=== PATIENT | female | born 1935 | race Caucasian/White ===

== ENCOUNTER → 2016-04-05 | Outpatient (REF) | payer MEDICARE ==
[~2016-04-05] MED LIST: APRESOLINE PO; ASPI1TAB PO; ASPI81TA4 PO; ASTE137S; CARV12.5 PO; CARV25TA PO; CIPR-250 PO; FLAG500T PO; FLOM5CAP PO; HYDR-4266 PO; HYDR-4267 PO; HYDR100T PO; HYDR100T13 PO; HYDR500C12 PO; HYDROXYUREA PO; IRON325T3 PO; LASI20TA PO; METO-209 PO; METO100T3 PO; MULTCAP PO; NORCOTAB PO; PERCOCET PO; TEKT150T PO; TEKT300T PO; TYLE325T5 PO; VITA200015 PO; VITAD1000T PO; VITMTA PO
== END ==
LOC: M LAB REF 16:09
PROVIDERS: ATTEND Physician Assistant
DX: R11.2 Nausea with vomiting, unspecified (principal); Z79.899 Other long term (current) drug therapy

== ENCOUNTER → 2016-04-05 | Outpatient (REF) | payer MEDICARE ==
[2016-04-05 13:22] LABS: PERCENT SATURATION 34.1 % (13.2-37.4)
== END ==
LOC: M LAB REF 12:27
PROVIDERS: ATTEND Internal Medicine Medical Oncology
DX: D47.3 Essential (hemorrhagic) thrombocythemia (principal); R11.2 Nausea with vomiting, unspecified; Z79.899 Other long term (current) drug therapy

== ENCOUNTER → 2016-06-03 | Outpatient (REF) | payer MEDICARE | LOC: M LAB REF 13:12 | PROVIDERS: ATTEND Internal Medicine Medical Oncology | DX: D50.9 Iron deficiency anemia, unspecified (principal) ==

== ENCOUNTER → 2016-06-18 | Outpatient (CLI) | payer MEDICARE ==
--- NOTE | 2016-06-18 15:20 | REP ---
THORACOLUMBAR SPINE: AP and lateral views of the thoracolumbar spine are performed. There is a moderate compression fracture of T12, which is new since the prior chest radiograph 08/03/2015. No other compression fractures is seen of the visualized. Thoracic and lumbar vertebral bodies. There is normal alignment with thoracic kyphosis and lumbar lordosis. There is mild diffuse spurring. There are multiple levels of moderate disc space narrowing in the mid to lower thoracic spine with subchondral sclerosis. The visualized posterior elements appear intact. IMPRESSION: Diffuse degenerative changes. Moderate compression fracture T12. Loss of height is in the range of about 40 to 50%. Signed by Baltazar Guo MD 06/18/2016 03:33 P
== END ==
LOC: M ADAMS 13:49
PROVIDERS: ATTEND Family Medicine
DX: S22.080A Wedge compression fracture of T11-T12 vertebra, initial encounter for closed fracture (principal); Y93.89 Activity, other specified; Y92.000 Kitchen of unspecified non-institutional (private) residence as the place of occurrence of the external cause; Y99.8 Other external cause status; X58.XXXA Exposure to other specified factors, initial encounter; M54.5 Low back pain
CPT/HCPCS: 72070; G0463

== ENCOUNTER → 2016-07-02 | Outpatient (REF) | payer MEDICARE ==
[2016-07-02 13:56] LABS: PERCENT SATURATION 44.7 % (13.2-37.4)
== END ==
LOC: M LAB REF 12:59
PROVIDERS: ATTEND Internal Medicine Medical Oncology
DX: D50.9 Iron deficiency anemia, unspecified (principal)

== ENCOUNTER → 2016-10-18 | Outpatient (REF) | payer MEDICARE ==
[~2016-10-18] MED LIST changes: +HYDR-3910 PO; +HYDR-3911 PO; -HYDR-4266 PO; -HYDR-4267 PO; -HYDR500C12 PO; +HYDR500C3 PO; -METO-209 PO; +METO1TAB33 PO; -TEKT150T PO; +[UNRECOGNIZED DRUG - CODE] PO
== END ==
LOC: M SFHCADAM 20:54 → M LAB REF 20:54
PROVIDERS: ATTEND Physician Assistant
DX: R19.7 Diarrhea, unspecified (principal)
CPT/HCPCS: 87507; G0463

== ENCOUNTER → 2016-12-05 | Outpatient (REF) | payer MEDICARE ==
[2016-12-05 14:39] LABS: FOLATE > 24.0 NG/ML; VITAMIN B12 LEVEL 408 PG/ML
[2016-12-05 15:20] LABS: FERRITIN 188 NG/ML (8-252); PERCENT SATURATION 53.4 % (13.2-45.0); TOTAL IRON BINDING CAPACITY 116 UG/DL (250-450)
== END ==
LOC: M LAB REF 09:23
PROVIDERS: ATTEND Internal Medicine Nephrology
DX: D64.9 Anemia, unspecified (principal)

== ENCOUNTER → 2016-12-11 | Outpatient (REF) | payer MEDICARE ==
[2016-12-11 14:02] LABS: FOLATE > 24.0 NG/ML (>5.4); VITAMIN B12 LEVEL 394 PG/ML (247-911)
[2016-12-11 14:03] LABS: FERRITIN 207 NG/ML (8-252); PERCENT SATURATION 35.7 % (13.2-45.0); TOTAL IRON BINDING CAPACITY 126 UG/DL (250-450)
== END ==
LOC: M LAB REF 12:37
PROVIDERS: ATTEND Internal Medicine Medical Oncology
DX: D50.9 Iron deficiency anemia, unspecified (principal); D46.9 Myelodysplastic syndrome, unspecified

== ENCOUNTER → 2017-04-28 | Outpatient (REF) | payer MEDICARE ==
[2017-04-28 14:24] LABS: FERRITIN 187 NG/ML (8-252); IRON (FE) 25 UG/DL (50-170); PERCENT SATURATION 25.5 % (13.2-45.0); TOTAL IRON BINDING CAPACITY 98 UG/DL (250-450)
== END ==
LOC: M LAB REF 13:17
DX: D64.9 Anemia, unspecified (principal)
CPT/HCPCS: 83550

== ENCOUNTER 2017-05-29 11:07 | Emergency (ER) | payer MEDICARE ==
[2017-05-29 12:55] LABS: VENOUS BASE EXCESS 2.2 (-2.0-2.0); VENOUS HCO3 26.5 MEQ/L (23.0-27.0); VENOUS O2 SATURATION 76.1 % (60.0-80.0); VENOUS PARTIAL PRESSURE CO2 40.1 mmHg (38.0-50.0); VENOUS PARTIAL PRESSURE O2 41.8 mmHg (30.0-50.0); VENOUS PH 7.438 UNITS (7.330-7.430); VENOUS TOTAL CO2 27.7 MEQ/L (24.0-28.0)
[2017-05-29 13:06] LABS: BASO # 0.1 10^3/uL (0.0-0.2); BASO % 0.9 % (0.0-1.0); EOS # 0.2 10^3/uL (0.0-0.50); IMMATURE GRANULOCYTE % 0.3 % (0-3.0); LYMPH # 0.8 10^3/uL (1.5-4.5); LYMPH % 12.3 % (24.0-44.0); MEAN CORPUSCULAR HEMOGLOBIN 34.1 pg (27.0-33.0); MEAN CORPUSCULAR HGB CONC 33.3 g/dl (32.0-36.5); MEAN CORPUSCULAR VOLUME 102.3 fl (80.0-96.0); NEUTROPHILS # 4.4 10^3/uL (1.8-7.7); NEUTROPHILS % 68.5 % (36.0-66.0); PLATELET COUNT, AUTOMATED 486 10^3/uL (150-450); RED BLOOD COUNT 2.64 10^6/uL (4.00-5.40); RED CELL DISTRIBUTION WIDTH 15.1 % (11.5-14.5); WHITE BLOOD COUNT 6.4 10^3/uL (4.0-10.0)
[2017-05-29 13:09] LABS: INR 1.08; PROTHROMBIN TIME 14.2 SECONDS (12.4-14.5)
[2017-05-29 13:27] LABS: LACTIC ACID SEPSIS PROTOCOL 0.8 MMOL/L (0.4-2.0)
[2017-05-29 13:30] LABS: ALBUMIN 3.7 GM/DL (3.2-5.2); ALKALINE PHOSPHATASE 70 U/L (45-117); ALT/SGPT 15 U/L (12-78); ANION GAP 10 MEQ/L (8-16); AST/SGOT 27 U/L (7-37); BILIRUBIN,DIRECT 0.2 MG/DL (0.0-0.2); BILIRUBIN,TOTAL 0.7 MG/DL (0.2-1.0); BLOOD UREA NITROGEN 39 MG/DL (7-18); CALCIUM LEVEL 8.9 MG/DL (8.8-10.2); CARBON DIOXIDE LEVEL 28 MEQ/L (21-32); CHLORIDE LEVEL 99 MEQ/L (98-107); CPK CREATINE PHOSPHOKINASE 101 U/L (26-192); CREATININE FOR GFR 2.38 MG/DL (0.55-1.30); GLOMERULAR FILTRATION RATE 20.7 (>32); GLUCOSE, FASTING 101 MG/DL (70-100); POTASSIUM SERUM 3.9 MEQ/L (3.5-5.1); SODIUM LEVEL 137 MEQ/L (136-145); TOTAL PROTEIN 7.4 GM/DL (6.4-8.2); TROPONIN I 1.34 NG/ML (< 0.10)
[2017-05-29 13:43] LABS: CK-MB VALUE MASS 1.9 NG/ML (0.0-3.6); MB/CK RELATIVE INDEX 1.88 (< OR =4); NT-PRO BNP 60479 PG/ML (<450)
[2017-05-29] MEDS: HEPARIN SOD (PORCINE) 5000 UNITS/ML VIAL IV (16:30)
[2017-05-29] MEDS: HEPARIN DRIP 25,000 UNITS in APPROPRIATE DILUENT 1 EA IV (17:04)
[2017-05-29] MEDS: ASPIRIN 81 MG CHEW TABLET PO (17:04)
== END 2017-05-29 17:43 | disposition short-term general hospital (02) ==
LOC: M ED 11:07
DX: I21.4 Non-ST elevation (NSTEMI) myocardial infarction (principal); I50.32 Chronic diastolic (congestive) heart failure; I35.0 Nonrheumatic aortic (valve) stenosis; I11.0 Hypertensive heart disease with heart failure; N18.9 Chronic kidney disease, unspecified; D64.9 Anemia, unspecified; D69.6 Thrombocytopenia, unspecified; Z88.8 Allergy status to other drugs, medicaments and biological substances; Z88.1 Allergy status to other antibiotic agents; Z88.0 Allergy status to penicillin; Z79.899 Other long term (current) drug therapy; Z79.82 Long term (current) use of aspirin
CPT/HCPCS: 71046

== ENCOUNTER → 2017-09-04 | Outpatient (REF) | payer MEDICARE ==
[2017-09-04 14:10] LABS: FERRITIN 376 NG/ML (8-252); IRON (FE) 75 UG/DL (50-170); PERCENT SATURATION 78.9 % (13.2-45.0); TOTAL IRON BINDING CAPACITY 95 UG/DL (250-450)
== END ==
LOC: M LAB REF 13:17
DX: D47.1 Chronic myeloproliferative disease (principal); D64.9 Anemia, unspecified
CPT/HCPCS: 83550

== ENCOUNTER → 2018-02-25 | Outpatient (REF) | payer MEDICARE ==
[2018-02-25 13:41] LABS: FERRITIN 274 NG/ML (8-252); IRON (FE) 67 UG/DL (50-170); PERCENT SATURATION 50.8 % (13.2-45.0); TOTAL IRON BINDING CAPACITY 132 UG/DL (250-450)
[2018-02-25 13:49] LABS: FOLATE > 24.0 NG/ML; VITAMIN B12 LEVEL 476 PG/ML
[2018-03-01 14:08] LABS: Methylmalonic Acid 408 nmol/L (0-378)
== END ==
LOC: M LAB REF 13:00
DX: D64.9 Anemia, unspecified (principal)
CPT/HCPCS: 82746

== ENCOUNTER → 2018-12-08 | Outpatient (REF) | payer MEDICARE ==
[~2018-12-08] MED LIST changes: +ALIS300T PO; +ALLO100T PO; -ASPI1TAB PO; +ASPI81TA26 PO; +BETA1OI; +BRIL90TA PO; +CALC1CAP31 PO; +COLC1TAB14 PO; +DOXA1TAB67 PO; +FLOM0.4C39 PO; -FLOM5CAP PO; +HYDR-3715 PO; -LASI20TA PO; +LASI20TA3 PO; -NORCOTAB PO; +OXYC1TAB23 PO; -PERCOCET PO; +POTA10TA67 PO; +TEKT150T PO; -TEKT300T PO; +VITA500045 PO; -[UNRECOGNIZED DRUG - CODE] PO
[2018-12-08 14:15] LABS: PERCENT SATURATION 38.3 % (13.2-45.0)
== END ==
LOC: M LAB REF 13:49
PROVIDERS: ATTEND Internal Medicine Nephrology
DX: D64.9 Anemia, unspecified (principal)

== ENCOUNTER 2019-01-20 19:03 | Inpatient (IN) | payer MEDICARE ==
[~2019-01-20] VITALS: Ht 154.9 cm; Wt 62.8 kg
[2019-01-20] MEDS: ALLOPURINOL 100 MG TAB PO SCH (03:13)
--- NOTE | 2019-01-20 20:09 | REP ---
Two-view chest: 01/20/2019. Indication: Dyspnea. Comparison: 05/29/2017. Findings: The lungs are clear. There is no pleural effusion or pneumothorax. Cardiac silhouette is borderline enlarged. Aortic atherosclerotic disease is present. Cardiac stent is new. Impression: There is no evidence of acute cardiopulmonary process. Electronically Signed by Rodney De Los Santos DO 01/20/2019 08:01 P
[2019-01-20 20:11] LABS: BASO % 0.6 % (0.0-1.0); EOS # 0.1 10^3/uL (0.0-0.5); HEMATOCRIT 23.8 % (36.0-47.0); HEMOGLOBIN 8.2 g/dl (12.0-15.5); LYMPH # 0.6 10^3/uL (1.5-5.0); LYMPH % 11.7 % (24.0-44.0); MEAN CORPUSCULAR HEMOGLOBIN 37.1 pg (27.0-33.0); MEAN CORPUSCULAR HGB CONC 34.5 g/dl (32.0-36.5); MEAN CORPUSCULAR VOLUME 107.7 fl (80.0-96.0); MONO # 0.6 10^3/uL (0.0-0.8); MONO % 11.9 % (0.0-5.0); NEUTROPHILS # 3.6 10^3/uL (1.5-8.5); PLATELET COUNT, AUTOMATED 393 10^3/uL (150-450); RED BLOOD COUNT 2.21 10^6/uL (4.00-5.40); WHITE BLOOD COUNT 4.9 10^3/uL (4.0-10.0)
[2019-01-20 20:33] LABS: CALCIUM LEVEL 8.6 MG/DL (8.8-10.2); CK-MB VALUE MASS 2.5 NG/ML (<3.6); CREATININE FOR GFR 2.69 MG/DL (0.55-1.30); GLOMERULAR FILTRATION RATE 17.9 (>32); MB/CK RELATIVE INDEX 1.32 (< OR =4); POTASSIUM SERUM 3.9 MEQ/L (3.5-5.1); TROPONIN I 0.16 NG/ML (< 0.10)
[2019-01-20 22:05] VITALS: BP 192/79
[2019-01-20 22:20] VITALS: BP 209/78
--- NOTE | 2019-01-20 22:28 | HPEPDOC ---
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 Khan for hemoglobin and hemoglobin. Patient states that for the last 2 days she has noticed light red bloody diarrhea. Denies abdominal pain, denies nausea, vomiting, denies any dizziness, denies any headaches, denies any hemoptysis, denies any dyspepsia, denies any dysphasia. She states that she believes her bloody diarrhea is due to medication adverse effects. Denies any recent trauma. She admits to shortness of breath. In the ED, initial evaluation showed patient was anemic with a hemoglobin of 8.2, with a hemo-crit of 23.8. 2 units of blood was ordered for patient. Hospital team was called for admission for symptomatic anemia, with positive Hemoccult PAST MEDICAL HISTORY: , Hypertension, chronic kidney disease, follows with nephrology, anemia of chronic disease, thrombocytopenia, CHF, follows with Dr. 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 Multifactorial anemia secondary to chronic renal insufficiency, chronic GI bleeding and secondary to hydroxyurea chemotherapy. PAST SURGICAL HISTORY: Hernia repair, tonsillectomy, D&C, left inguinal hernia and umbilical repair, ERCP with sphinecterotomy, cardiac stent to the left main,TAVR SOCIAL HISTORY: , Nonsmoker, no alcohol, no illicit drug use FAMILY HISTORY: Noncontributory due to advanced age ALLERGIES: Please see below. ROS CONSTITUTIONAL: No fevers, denies chills, denies weight loss, denies lethargy HEENT: No rhinorrhea, no itchy eyes, no congesion, CARDIOVASCULAR: No murmurs no palpitations and arrhythmias RESPIRATORY: Not cough, positive for SOB, GASTROINTESTINAL: No nausea, no vomiting, no difficulty swallowing, no pain with eating, no diarrhea HEMATOLOGICAL: Bright red blood per rectum GENITOURINARY:No Issues HEMATOLOGIC/LYMPHATIC: No swelling PE VITALS: See Below GENERAL APPEARANCE: Alert no acute distress. , Elderly, pleasant female, alert, and oriented SKIN: Warm, well perfused., Dry skin ENT: Palate intact, martinez tympanic membrane no bulging, no erythema, Neck supple, no thyromegaly, healing surgical scar on patient's right cheek LUNGS: Clear to auscultation bilaterally. HEART: Normal S1, S2. No murmurs, no rubs, no gallops ABDOMEN: Soft. No masses. Bowel sounds are present. TRUNK/SPINE:Straight. EXTREMITIES: Moves all extremities equally. No gross deformities. PULSES: 2+ upper and lower extremity . LABORATORY DATA: See below. IMAGING: Chest radiograph No evidence of acute cardiopulmonary process MICROBIOLOGY: Please see below. Assessment and plan, An 83-year-old presenting with 2 days of bloody diarrhea, admits to shortness of breath. Admitted for symptomatic anemia. 2 units of packed red blood cells have been ordered for patient. We'll continue to monitor H&H after blood transfusion. Patient has declined workup with colonoscopy. Last colonoscopy was dated 2004, on August 22. Performed by Dr. Lozano. Indication for this was rectal bleeding of unknown etiology. It showed hemorrhoids and diverticulosis with an otherwise normal exam. Patient has not had a colonoscopy since. Symptomatic anemia secondary to GI bleed -Transfuse 2 units of red blood cells, monitor H&H g6 -Hold aspirin -Hold Brilinta -Hold hydroxyurea Hypertension. Continue home meds -IV meds to control elevated BP Chronic kidney disease. -continue to monitor Gout -Continue home meds Diastolic congestive heart failure. Continue home meds DVT prophylaxis TEDs Vital Signs Vital Signs Date Time Temp Pulse Resp B/P (MAP) Pulse Ox O2 Delivery O2 Flow Rate FiO2 01/20/19 21:23 67 23 201/81 (121) 98 Room Air 01/20/19 19:05 97.9 Laboratory Data Labs 24H Laboratory Tests 2 01/20/19 19:57: Immature Granulocyte % (Auto) 0.8, Neutrophils (%) (Auto) 74.0H, Lymphocytes (%) (Auto) 11.7L, Monocytes (%) (Auto) 11.9H, Eosinophils (%) (Auto) 1.0, Basophils (%) (Auto) 0.6, Neutrophils # (Auto) 3.6, Lymphocytes # (Auto) 0.6L, Monocytes # (Auto) 0.6, Eosinophils # (Auto) 0.1, Basophils # (Auto) 0.0, Nucleated Red Blood Cells % (auto) 0.0, Anion Gap 7L, Glomerular Filtration Rate 17.9L, Calcium Level 8.6L, Total Creatine Kinase 189, Creatine Kinase MB 2.5, Creatine Kinase MB Relative Index 1.32, Troponin I 0.16H, UN-Sdd-[id number]-Type Natriuretic Peptide 03822T CBC/BMP Laboratory Tests 01/20/19 19:57 Microbiology Microbiology 01/20/19 Gastrointestinal Tract Panel (PCR), Received Pending Home Medications Scheduled Allopurinol (Allopurinol) 100 Mg Tablet, 100 MG PO BID Aspirin (Aspirin EC) 81 Mg Tab, 81 MG PO DAILY Carvedilol (Carvedilol) 25 Mg Tab, 25 MG PO BID Doxazosin Mesylate (Doxazosin) 4 Mg Tab, 4 MG PO QHS Furosemide (Lasix) 20 Mg Tab, 20 MG PO DAILY Hydralazine HCl (Hydralazine HCl) 50 Mg Tab, 1 TABS PO TID Hydroxyurea (Hydroxyurea) 500 Mg Cap, 500 MG PO 5XW TAKES 500MG ONCE DAILY ON FRIDAY, FRIDAY, FRIDAY, FRIDAY AND FRIDAY Hydroxyurea (Hydroxyurea) 500 Mg Capsule, 500 MG PO 2XW TAKES 500MG BID ON FRIDAY AND FRIDAY Multivitamins (Thera M Plus Tablet) 1 Tab Tab, 1 TAB PO DAILY Potassium Chloride (Potassium Chloride) 10 Meq Tab, 10 MEQ PO BID Ticagrelor Base (Brilinta) 90 Mg Tab, 90 MG PO BID Vit A/Vit C/Vit E/Zinc/Copper (Preservision Areds Softgel) 1 Each Capsule, 1 CAP PO BID Scheduled PRN Colchicine (Colcrys) 0.6 Mg Tab, 0.6 MG PO DAILY PRN for GOUT ATTACK Allergies Coded Allergies: telmisartan (Verified Allergy, Severe, BOTHERED BREATHING,LEG,ARM MUSCLES HURT, 07/02/18) penicillin V (Verified Allergy, Intermediate, HIVES, 07/02/18) clonidine (Verified Allergy, Mild, Patch = Itching, 07/02/18) amlodipine (Verified Allergy, Unknown, EYES HURT, ITCH, 07/02/18) fluticasone (Verified Allergy, Unknown, 07/02/18) lisinopril (Verified Allergy, Unknown, 07/02/18) promethazine (Verified Allergy, Unknown, 07/02/18) rofecoxib (Verified Allergy, Unknown, CHOKING, 07/02/18) torsemide (Verified Allergy, Unknown, 07/02/18) clarithromycin (Verified Adverse Reaction, Severe, Severe Abdominal Pain, 07/02/18) amantadine (Verified Adverse Reaction, Unknown, HEART RACED, 07/02/18) amiloride (Verified Adverse Reaction, Unknown, SICK STOMACH, CHEST PAIN, LEG CRAMPS, 07/02/18) anagrelide (Verified Adverse Reaction, Unknown, CHEST PAIN, 07/02/18) atenolol (Verified Adverse Reaction, Unknown, SICK, 07/02/18) cetirizine (Verified Adverse Reaction, Unknown, EYES FELT GLUED IN PLACE, 07/02/18) chlorthalidone (Verified Adverse Reaction, Unknown, DIZZY, VOMITING, IRREGULAR HEART BEAT, 07/02/18) doxycycline (Verified Adverse Reaction, Unknown, HEADACHE, 07/02/18) erythromycin base (Verified Adverse Reaction, Unknown, SWEATING, WEAK MUSCLES, 07/02/18) nifedipine (Verified Adverse Reaction, Unknown, STOMACH/BACK PAIN, 07/02/18) olmesartan (Verified Adverse Reaction, Unknown, LEG/BACK PAIN; ZOMBIE SIDE EFFECTS, 07/02/18) valsartan (Verified Adverse Reaction, Unknown, NOT FEELING GOOD, 07/02/18) GME ATTESTATION GME ATTESTATION My faculty preceptor for this patient encounter was physically present during the encounter and was fully available. All aspects of the patient interview, examination, medical decision making process, and medical care plan development were reviewed and approved by the faculty preceptor. The faculty preceptor is aware and concurs with the plan as stated in the body of this note and will attest to such by his/her cosignature. ATTENDING NOTE I examined Mrs. Moreira at 9:40 PM and discussed the case with Dr. Reed. is a 83 female with a PMH of chronic grade 2 diastolic congestive heart failure, aortic stenosis, essential thrombocytopenia, ptosis, CKD 4, chron ic hypertension, gout, and CAD who was sent by her seed district sales manager for evaluation of abnormal blood work. According to the patient, her seed district sales manager noted that she had congestion. The patient also complained of shortness of breath, diarrhea with blood and chills. Per discussion with the ED attending heme occult was positive. #1. Acute on Chronic Symptomatic Anemia / Lower GI Bleed. The patient has a history of multifactorial anemia Hemoglobin is below her baseline today. Stool occult was positive. PRBCs have been ordered by the ED Iron panel done November was consistent with iron deficiency. B12, TSH, and folate, done in 2017 were unremarkable. She declined c-scope this admission Plan: Admit to PCU/type and screen/follow-up, reticulocyte count and serial Hg / a target hemoglobin > 7/ hold hydroxyurea bc it can cause anemia and bone marrow suppression 2.Accelerated HTN EKG reviewed (similar to previous EKG) Troponin 0.16 (which is lower than it was during the previous admission) On physical exam she sounds congested but her chest xray is unremarkable. Her BNP is elevated but lower than it was during previous admissions. She may have had flash pulm edema? Plan:telemetry / uptitrate doses of hydralazine and coreg / trend troponin DVT prophylaxis with SCDs Rest per Dr. Reed's note HOANG SETHI DO Jan 20, 2019 22:28 BORIS RUSHING MD Jan 21, 2019 01:46
[2019-01-20 23:16] VITALS: BP 201/77
[2019-01-21] VITALS (11 sets, daily range): BP systolic 160–226; BP diastolic 60–105
--- NOTE | 2019-01-21 01:02 | ECGEPIP ---
[facility] - ED Test Date: 2019-01-20 Pat Name: SUSIE CEJA Department: Room: - Gender: Female Ski Topper: BLAIRE : 1935 Requested By: CHI DAMON Order Number: [id number] Reading MD: Abraham Villavicencio Measurements Intervals [place] Rate: 67 P: 43 FL: 182 QRS: -34 QRSD: 106 T: 64 QT: 402 QTc: 427 Interpretive Statements SINUS RHYTHM LEFT AXIS DEVIATION LEFT VENTRICULAR HYPERTROPHY AND ST-T CHANGE SIMILAR TO 05/29/17 Electronically Signed on 01-21-2019 1:02:00 EDT by Abraham Villavicencio
[2019-01-21] MEDS ORDERED: CARVedilol 12.5 MG TAB As Ordered ONE ×2 (01:16→06:16)
[2019-01-21] MEDS ORDERED: **hydrALAZINE** 50 MG TAB As Ordered ONE ×2 (01:16→06:17)
[2019-01-21] MEDS ORDERED: NS 1,000 ML IV SCH (02:00)
[2019-01-21] MEDS ORDERED: ALLO100T PO (02:16)
[2019-01-21] MEDS ORDERED: PRESCAP PO (02:16)
[2019-01-21] MEDS ORDERED: HYDR500C3 PO (02:16)
[2019-01-21] MEDS ORDERED: COLCHICINE 0.6 MG TAB PO PRN (02:30)
[2019-01-21 04:31] LABS: HEMATOCRIT 28.5 % (36.0-47.0); HEMOGLOBIN 9.7 g/dl (12.0-15.5); MEAN CORPUSCULAR HEMOGLOBIN 34.2 pg (27.0-33.0); MEAN CORPUSCULAR VOLUME 100.4 fl (80.0-96.0); PLATELET COUNT, AUTOMATED 331 10^3/uL (150-450); RED BLOOD COUNT 2.84 10^6/uL (4.00-5.40); WHITE BLOOD COUNT 4.2 10^3/uL (4.0-10.0)
[2019-01-21 04:54] LABS: CALCIUM LEVEL 8.3 MG/DL (8.8-10.2); CREATININE FOR GFR 2.57 MG/DL (0.55-1.30); GLOMERULAR FILTRATION RATE 18.9 (>32); MAGNESIUM LEVEL 2.2 MG/DL (1.8-2.4); POTASSIUM SERUM 3.4 MEQ/L (3.5-5.1)
[2019-01-21] MEDS: **hydrALAZINE** 50 MG TAB PO SCH ×3 (06:26→21:09)
[2019-01-21] MEDS ORDERED: **hydrALAZINE** 50 MG TAB PO SCH ×2 (09:00)
[2019-01-21] MEDS ORDERED: HYDROXYUREA 500 MG CAP PO SCH (09:00)
[2019-01-21] MEDS ORDERED: CARVedilol 12.5 MG TAB PO SCH ×2 (09:00)
[2019-01-21] MEDS: ALLOPURINOL 100 MG TAB PO SCH ×2 (09:04→21:09)
[2019-01-21] MEDS: FUROSEMIDE 20 MG TAB PO SCH (09:04)
[2019-01-21] MEDS: OCUVITE 1 TAB PO SCH ×2 (09:04→21:07)
[2019-01-21] MEDS: POTASSIUM CHLORIDE 10 MEQ SR TABLET PO SCH ×2 (09:04→21:09)
[2019-01-21 10:53] LABS: HEMATOCRIT 29.4 % (36.0-47.0)
--- NOTE | 2019-01-21 16:44 | IPN ---
DATE: 01/21/2019 SUBJECTIVE: The patient feels only mild dyspnea with exertion. Denies lightheadedness, faintness, wooziness. She has had some bright red rectal bleeding that developed over the past several days. She has not had any today, she says. Because she was symptomatic and seemed to have some ongoing rectal bleeding and her hemoglobin was close to the threshold requiring transfusion, she did receive blood products, specifically two units of packed red blood cells, one on January 20, 2019 at 2205 hours and one on January 21, 2019 at 0130 hours. She is not having any chest pain, dyspnea, numbness, tingling, weakness or nausea and again, asserts that she has seen no rectal bleeding since coming in the hospital. OBJECTIVE: Vital signs have been another story, however, with pressures that are dramatically elevated since admission; 215/86 initially, 219/86 subsequently, most recent 214/105, drops to 201/81 with standing, 226/88 right arm sitting. Pulses range between 67 and 72. She has a long history of medication intolerances. These include multiple different medications for blood pressure regulation, including amlodipine, atenolol, chlorthalidone, clonidine as a transdermal patch and angiotensin receptor blockers, and lisinopril. Amlodipine reputedly caused her eyes to hurt and itch. She had a skin reaction from transdermal clonidine. Valsartan and olmesartan caused vague not feeling well symptom. Lisinopril unspecified reaction. Telmisartan caused trouble breathing and arms felt different. Amiloride caused nausea and chest pain. Atenolol made her feel sick. CURRENT MEDICATIONS: Include carvedilol, which has been up titrated from 12.5 to 25 mg today and hydralazine which has been up titrated also. At home, her doses of medicines attempting to provide blood pressure control include carvedilol 25 twice a day, Lasix 20 mg daily, hydralazine 50 mg three times a day. She has been on aspirin and Brilinta because of a history of coronary stents that had been placed. These are more than 1 year old at this time. Troublingly, she also has a history of essential thrombocytosis. Clinically, this problem creates either excessive increased risk for clotting or increased risk of bleeding depending on how the platelets are affected by the disease state. More commonly, people have abnormal clotting scenarios and generally use of antiplatelet agents is recommended to reduce that threat. Today, on exam, she has an unremarkable exam. She has no focal neurologic deficits. Lungs are clear to auscultation. Heart: Regular rhythm without murmur. Abdomen is soft, nontender. No guarding and no unusual bruising. Laboratory data include slightly low potassium at 3.4, creatinine is 2.57, chronic kidney disease is part of her health problems chronically. Pro-BNP was 12,362. Troponin I was 0.16 and has dropped since to 0.11 most recently checked. Fasting glucose 124, it was 81 this morning. Chemistries show macrocytic indices. MCV was greater than 115 initially before transfusion. MCV was 107.7, hemoglobin 8.2. Her previous outpatient hemoglobin had been 9.2; today she is 10.0 after two unit transfusion. Repeat studies are pending. Haptoglobin is pending. LDH was 251. Liver enzymes have not been examined. Lactic acid was not measured. Vitamin B12 has been measured in the past, always has been normal. Folic acid similarly has always been normal. MCVs have been elevated since at least 2014. This abnormality may be part of her underlying mild bone marrow dysfunction. ASSESSMENT: Lower gastrointestinal (GI) bleed, possible etiologies include inflammatory bowel disease, the most likely etiology is diverticular bleeding with positive past history of diverticulitis. Arteriovenous malformation, hemorrhoidal bleeding are other possibilities. Ischemic bowel disease seems unlikely with absence of pain and normal white count. Colonic neoplasm could not be ruled out; patient says she will not have a colonoscopy. Hypertension, chronic kidney disease stage IV, essential thrombocytosis, history of coronary artery disease with stents in place that are more than 1 year old. PLAN: For the moment, antiplatelet agents will be held. Blood pressure medications will be adjusted to try to improve her control. So far, we have escalated hydralazine, which will now be increased to 100 mg four times a day and we have escalated carvedilol to 37.5 mg twice a day. Of note, she has no history of adverse or intolerance reaction to nitrates and no history of adverse reaction to orally administered clonidine, and no history of use of minoxidil. Consider cardiology consultation and GI consultation if bleeding continues. For now, will continue doxazosin 4 mg at bedtime, hydralazine 100 mg four times a day, carvedilol 37.5 mg twice a day, allopurinol and potassium chloride has been administered for potassium repletion. Will also continue Lasix 20 mg daily. Normal saline is currently running, and this will be stopped in light of her hypertension and she is not having trouble tolerating oral intake.
[2019-01-21 17:16] LABS: HEMATOCRIT 30.4 % (36.0-47.0); HEMOGLOBIN 10.4 g/dl (12.0-15.5)
[2019-01-21] MEDS ORDERED: amLODIPine 5 MG TAB PO ONE (18:00)
[2019-01-21] MEDS: DOXAZOSIN MESYLATE 4 MG TAB PO SCH (21:08)
[2019-01-21] MEDS: CARVedilol 12.5 MG TAB PO SCH (21:09)
[2019-01-21 22:52] LABS: HEMATOCRIT 29.2 % (36.0-47.0); HEMOGLOBIN 9.9 g/dl (12.0-15.5)
[2019-01-22] VITALS: BP_SYST 160; BP_SYST 170; BP_SYST 172; BP_DIAS 58; BP_DIAS 62; BP_DIAS 64
[2019-01-22 04:00] VITALS: BP_SYST 170; BP_SYST 178; BP_SYST 184; BP_DIAS 68; BP_DIAS 70
[2019-01-22 04:13] LABS: HEMATOCRIT 29.5 % (36.0-47.0)
[2019-01-22 08:00] VITALS: BP_SYST 178; BP_SYST 182; BP_DIAS 60; BP_DIAS 62; BP_DIAS 66
[2019-01-22] MEDS ORDERED: FLUBLOK(EGG FREE)(QUAD)INFLUENZA VACC 0.5ML SYRINGE (90682)18YRS&OLDER IM ONE (09:00)
[2019-01-22] MEDS: POTASSIUM CHLORIDE 10 MEQ SR TABLET PO SCH ×2 (09:00→20:29)
[2019-01-22] MEDS: OCUVITE 1 TAB PO SCH ×3 (09:00→20:29)
[2019-01-22] MEDS ORDERED: HYDROXYUREA 500 MG CAP PO SCH (09:00)
[2019-01-22] MEDS: CARVedilol 12.5 MG TAB PO SCH ×2 (10:10→20:29)
[2019-01-22] MEDS: amLODIPine 10 MG TAB PO SCH (10:10)
[2019-01-22] MEDS: **hydrALAZINE** 50 MG TAB PO SCH ×4 (10:10→20:30)
[2019-01-22] MEDS: ALLOPURINOL 100 MG TAB PO SCH ×2 (10:11→20:29)
[2019-01-22] MEDS: FUROSEMIDE 20 MG TAB PO SCH (10:11)
--- NOTE | 2019-01-22 11:09 | IPNPDOC ---
Subjective Date Seen The patient was seen on 01/22/19. Subjective Chief Complaint/HPI No further diarrhea. No n/v or abd pain. Feels well Constitutional: Denies: Chills, Fever Pulmonary: Denies: Dyspnea, Cough Cardiovascular: Denies: Chest Pain, Palpitations Gastrointestinal: Denies: Nausea, Vomiting, Abdominal Pain, Diarrhea, Constipation Objective Physical Examination General Exam: Positive: Alert, No Acute Distress Chest Exam: Positive: Clear to auscultation; Negative: Rales, Rhonchi, Wheezing Heart Exam: Positive: Rate Normal, Regular Rhythm Abdomen Exam: Positive: Normal bowel sounds, Soft; Negative: Tenderness Extremity Exam: Negative: Edema Assessment /Plan Problems (1) Acute GI bleeding Status: Resolved Problem Text: s/p 2 units PRBCs on admission. Hgb stable No further bleeding Diarrhea resolved GI panel negative (2) HTN (hypertension) Status: Chronic Problem Text: BP meds adjusted - Amlodipine added and dose increased Renal Artery doppler done this am - results pending (3) CKD (chronic kidney disease) stage 4, GFR 15-29 ml/min Status: Chronic Response to Treatment: Stable Plan/VTE VTE Prophylaxis Ordered?: No VTE Exclusion Pharmacological: Active Bleeding Disposition Probable d/c home in am if hgb no further bleeding and Hgb remains stable and BP better controlled VS, I&O, 24H, Fishbone Vital Signs/I&O Vital Signs Date Time Temp Pulse Resp B/P (MAP) Pulse Ox O2 Delivery O2 Flow Rate FiO2 01/22/19 08:00 62 182/66 (104) 63 178/62 (100) 65 178/60 (99) 01/22/19 08:00 97.7 18 95 Room Air I&O- Last 24 Hours up to 6 AM 01/22/19 06:00 Intake Total 836 ml Output Total 250 ml Balance 586 ml Laboratory Data 24H LABS Laboratory Tests 2 01/21/19 16:44: Troponin I 0.07# 01/21/19 22:43: Troponin I 0.07 CBC/BMP Laboratory Tests 01/21/19 16:44 01/21/19 22:43 01/22/19 04:08 Microbiology Microbiology 01/20/19 Gastrointestinal Tract Panel (PCR) - Final, Complete KELSEY SNELL PA-C Jan 22, 2019 11:09
[2019-01-22 11:47] VITALS: BP 176/77
[2019-01-22 16:00] VITALS: BP 182/62
--- NOTE | 2019-01-22 19:56 | REP ---
RENAL ULTRASOUND WITH DUPLEX DOPPLER RENAL ARTERY EVALUATION: Real-time ultrasound evaluation of the kidneys performed. The kidney is significantly atrophic with diffuse hyperechoic echotexture compatible with medical renal disease. The right kidney measures 4.9 x 2.7 x 2.4 cm. There is no hydronephrosis. Left kidney is relatively normal in size and echotexture at 9.0 x 3.9 x 4.5 cm with no mass or hydronephrosis. The bladder is not distended. Real-time ultrasound evaluation and duplex Doppler interrogation of the renal arteries is performed bilaterally. Peak systolic velocity of the abdominal aorta at the level of the renal arteries is 72.5 cm/s. Main right renal artery is not visualized. Prior noncontrast CT of 06/22/2015 of the abdomen there is a large amount of atherosclerotic calcification at the origin of the main right renal artery and therefore, I suspect severe stenosis. Resistive indices are measured in the upper, middle and lower thirds of the right kidney and are in the range of 1.0 with reversal of arterial flow. Acceleration times ranged between 0.048 and 0.068. Peak systolic velocity in the main left renal artery is 478 cm/s, renal to aortic ratio 6.6. Resistive indices left kidney range between 0.81 and 0.84. Acceleration times ranged between 0.044 and 0.052. IMPRESSION: Severe atrophy right kidney. Right renal artery could not be visualized and I suspect it is either severely stenotic or occluded. A large amount of atherosclerotic calcification is seen in the origin of the right renal artery on the prior CT of abdomen 06/22/2015. 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 Electronically Signed by Baltazar Guo MD 01/23/2019 03:33 P
[2019-01-22 20:00] VITALS: BP 170/72
[2019-01-22] MEDS: DOXAZOSIN MESYLATE 4 MG TAB PO SCH (20:30)
[2019-01-23] VITALS: BP 180/72
[2019-01-23 04:00] VITALS: BP 158/68
[2019-01-23 05:37] LABS: HEMATOCRIT 29.5 % (36.0-47.0); HEMOGLOBIN 9.6 g/dl (12.0-15.5); MEAN CORPUSCULAR HEMOGLOBIN 32.5 pg (27.0-33.0); MEAN CORPUSCULAR HGB CONC 32.5 g/dl (32.0-36.5); PLATELET COUNT, AUTOMATED 334 10^3/uL (150-450); RED BLOOD COUNT 2.95 10^6/uL (4.00-5.40); WHITE BLOOD COUNT 5.2 10^3/uL (4.0-10.0)
[2019-01-23 05:55] LABS: CALCIUM LEVEL 7.7 MG/DL (8.8-10.2); CREATININE FOR GFR 2.62 MG/DL (0.55-1.30); GLOMERULAR FILTRATION RATE 18.5 (>32); POTASSIUM SERUM 3.6 MEQ/L (3.5-5.1)
[2019-01-23 08:00] VITALS: BP 180/70
[2019-01-23] MEDS: **hydrALAZINE** 50 MG TAB PO SCH ×4 (08:27→20:25)
[2019-01-23] MEDS: ALLOPURINOL 100 MG TAB PO SCH ×2 (08:27→20:25)
[2019-01-23] MEDS: FUROSEMIDE 20 MG TAB PO SCH (08:27)
[2019-01-23] MEDS: amLODIPine 10 MG TAB PO SCH (08:27)
[2019-01-23] MEDS: OCUVITE 1 TAB PO SCH ×2 (08:28→20:25)
[2019-01-23] MEDS: CARVedilol 12.5 MG TAB PO SCH ×2 (08:28→20:24)
[2019-01-23] MEDS: POTASSIUM CHLORIDE 10 MEQ SR TABLET PO SCH ×2 (08:28→20:25)
[2019-01-23 12:00] VITALS: BP 137/65
--- NOTE | 2019-01-23 13:07 | CR.PDOC ---
General Date of Consultation: Jan 23, 2019 Attending Physician: Luke Yin MD Consultation REASON FOR CONSULTATION/CHIEF COMPLAINT: Hypertension and renal artery stenosis HISTORY OF PRESENT ILLNESS: Ms. Moreira is a very pleasant 84-year-old patient with recent admission for GI bleed, now resolved. She has a history of chronic GI bleeds. She has had uncontrolled hypertension on 3 medications, and a renal ultrasound was performed. I've reviewed that imaging. The patient has an atrophic right kidney and no flow was visualized through the right renal artery, which may mean that it has trickle flow or it may be completely occluded. No vascular intervention required for the right kidney based on this imaging. On the left however, the kidney measures 9 cm x 4 cm x 4.5 cm. The resistive indices 0.8. In the main left renal artery the PSV is 478 cm/s, and the renal to aortic ratio is 6.6. This indicates severe stenosis of the left renal artery and the patient meets criteria for arteriogram plus or minus intervention. Unfortunately, in order to treat renal artery stenosis, standard of care is to angioplasty and stent. With a bare-metal stent, we would need at least 60 days of Plavix, and I am not sure with her history of GI bleed, anemia, and thrombocytopenia that she could tolerate this. Also, with CRI and Cr 2.6 and GFR 18, it is risky for even a small amount of IV dye needed to perform the proced ure, and we sometimes do not see a significant improvement post-procedure if stage IV renal insufficiency is present. We will discuss it with her primary team. I discussed with the patient the natural history of renal artery stenosis, the relationship to hypertension, and the risks benefits alternatives to and arteriogram with attempt to cannulate the highly stenotic left renal artery and possibly angioplasty possible stent. ALLERGIES: Please see below. HOME MEDICATIONS: Please see below. PAST MEDICAL HISTORY: 1. HTN 2. Renal artery stenosis 3. CKD 4. Anemia: CRI, GI bleeds, hydroxyurea 5. Thrombocytopenia 6. CHF 7. Gout 8. CAD, h/o MS 9. Chronic myeloproliferitive disorder PE VITALS: See Below GENERAL APPEARANCE: Alert no acute distress. , Elderly, pleasant female, alert, and oriented SKIN: Warm, well perfused., Dry skin ENT: Palate intact, martinez tympanic membrane no bulging, no erythema, Neck supple, no thyromegaly, healing surgical scar on patient's right cheek LUNGS: Clear to auscultation bilaterally. HEART: Normal S1, S2. No murmurs, no rubs, no gallops ABDOMEN: Soft. No masses. Bowel sounds are present. TRUNK/SPINE:Straight. EXTREMITIES: Moves all extremities equally. No gross deformities. PULSES: 2+ upper and lower extremity . PAST SURGICAL HISTORY: 1. UHR and LIHR 2. Tonsileectomy 3. D&C 4. ERCP and sphincterotomy 5. TAVR 6. PCI FAMILY HISTORY: Renal disease, heart disease, HTN SOCIAL HISTORY: Denies tobacco, ETOH, or illicit drug use. REVIEW OF SYSTEMS: CONSTITUTIONAL: +fatigue, no f/c HEENT: no vision changes, no dysphagia CARDIOVASCULAR: no CP RESPIRATORY: no SOB GENITOURINARY: no hematuria MUSCULOSKELETAL: +back pain GASTROINTESTINAL: +BRBPR, no n/v SKIN: no rashes NEUROLOGICAL: no CVA, no MARTINEZ or sz PSYCHIATRIC: no anxiety/depression ENDOCRINE: no dm HEMATOLOGIC/LYMPHATIC: +easy bruising, +anemia/thrombocytopenia ALLERGIC/IMMUNOLOGIC: denies PHYSICAL EXAMINATION: VITAL SIGNS: Please see below. GENERAL APPEARANCE: appears medically stable HEENT: vision grossly intact, TMI RESPIRATORY: CTA CARDIOVASCULAR: RRR ABDOMEN: soft NT ND +BS EXTREMITIES: Monophasic DP/PT signals BLE NEUROLOGICAL: A&O, MAEE PSYCHIATRIC: pleasant and cooperative LABORATORY DATA: Please see below. ASSESSMENT/PLAN: Very pleasant 84yo patient with severe L RA stenosis that meets criteria for arteriogram and intervention secondary to HTN uncontolled on 3 medications, PSV >200, R/A ratio >3.5, normal kidney size and RI 0.8. 1. With h/o GI bleeds, anemia, thrombocytopenia, we need to consider the pt's ability to tolerate plavix for 60 days post procedure if we are able to successfully angioplasty and stent her L RA. 2. With stage IV renal insufficiency, the patient is at high risk for PAULA and possibly needing HD post procedure, even if we use very minimal IV dye and hydrate well terence-procedurally. Also, we sometimes do not see dramatic improvements with stenting if renal function is deteriorated to stage IV. 3. We will d/w primary team as her comorbidities make this a less straight forward case. We appreciate the opportunity to participate in the care of this patient. Vital Signs/I&O Vital Signs Date Time Temp Pulse Resp B/P (MAP) Pulse Ox O2 Delivery O2 Flow Rate FiO2 01/23/19 12:32 160/70 01/23/19 08:28 61 01/23/19 08:00 98.6 17 96 Room Air I&O- Last 24 Hours up to 6 AM 01/23/19 06:00 Intake Total 1620 ml Output Total 1200 ml Balance 420 ml Laboratory Data Labs 24H Laboratory Tests 2 01/23/19 05:13: Nucleated Red Blood Cells % (auto) 0.0, Anion Gap 7L, Glomerular Filtration Rate 18.5L, Calcium Level 7.7L CBC/BMP Laboratory Tests 01/23/19 05:13 Microbiology Microbiology 01/20/19 Gastrointestinal Tract Panel (PCR) - Final, Complete Allergies Coded Allergies: telmisartan (Verified Allergy, Severe, BOTHERED BREATHING,LEG,ARM MUSCLES HURT, 07/02/18) penicillin V (Verified Allergy, Intermediate, HIVES, 07/02/18) clonidine (Verified Allergy, Mild, Patch = Itching, 07/02/18) amlodipine (Verified Allergy, Unknown, EYES HURT, ITCH, 07/02/18) fluticasone (Verified Allergy, Unknown, 07/02/18) lisinopril (Verified Allergy, Unknown, 07/02/18) promethazine (Verified Allergy, Unknown, 07/02/18) rofecoxib (Verified Allergy, Unknown, CHOKING, 07/02/18) torsemide (Verified Allergy, Unknown, 07/02/18) clarithromycin (Verified Adverse Reaction, Severe, Severe Abdominal Pain, 07/02/18) amantadine (Verified Adverse Reaction, Unknown, HEART RACED, 07/02/18) amiloride (Verified Adverse Reaction, Unknown, SICK STOMACH, CHEST PAIN, LEG CRAMPS, 07/02/18) anagrelide (Verified Adverse Reaction, Unknown, CHEST PAIN, 07/02/18) atenolol (Verified Adverse Reaction, Unknown, SICK, 07/02/18) cetirizine (Verified Adverse Reaction, Unknown, EYES FELT GLUED IN PLACE, 07/02/18) chlorthalidone (Verified Adverse Reaction, Unknown, DIZZY, VOMITING, IRREGULAR HEART BEAT, 07/02/18) doxycycline (Verified Adverse Reaction, Unknown, HEADACHE, 07/02/18) erythromycin base (Verified Adverse Reaction, Unknown, SWEATING, WEAK MUSCLES, 07/02/18) nifedipine (Verified Adverse Reaction, Unknown, STOMACH/BACK PAIN, 07/02/18) olmesartan (Verified Adverse Reaction, Unknown, LEG/BACK PAIN; ZOMBIE SIDE EFFECTS, 07/02/18) valsartan (Verified Adverse Reaction, Unknown, NOT FEELING GOOD, 07/02/18) Home Medications Scheduled Allopurinol (Allopurinol) 100 Mg Tablet, 100 MG PO BID, (Reported) Aspirin (Aspirin EC) 81 Mg Tab, 81 MG PO DAILY, (Reported) Carvedilol (Carvedilol) 25 Mg Tab, 25 MG PO BID, (Reported) Doxazosin Mesylate (Doxazosin) 4 Mg Tab, 4 MG PO QHS, (Reported) Furosemide (Lasix) 20 Mg Tab, 20 MG PO DAILY, (Reported) Hydralazine HCl (Hydralazine HCl) 50 Mg Tab, 1 TABS PO TID, (Reported) Hydroxyurea (Hydroxyurea) 500 Mg Cap, 500 MG PO 5XW, (Reported) TAKES 500MG ONCE DAILY ON FRIDAY, FRIDAY, FRIDAY, FRIDAY AND FRIDAY Hydroxyurea (Hydroxyurea) 500 Mg Capsule, 500 MG PO 2XW, (Reported) TAKES 500MG BID ON FRIDAY AND FRIDAY Multivitamins (Thera M Plus Tablet) 1 Tab Tab, 1 TAB PO DAILY, (Reported) Potassium Chloride (Potassium Chloride) 10 Meq Tab, 10 MEQ PO BID, (Reported) Ticagrelor Base (Brilinta) 90 Mg Tab, 90 MG PO BID, (Reported) Vit A/Vit C/Vit E/Zinc/Copper (Preservision Areds Softgel) 1 Each Capsule, 1 CAP PO BID, (Reported) Scheduled PRN Colchicine (Colcrys) 0.6 Mg Tab, 0.6 MG PO DAILY PRN for GOUT ATTACK, (Reported) DIONNE MAYBERRY MD Jan 23, 2019 12:44
[2019-01-23 16:00] VITALS: BP 145/72
[2019-01-23 20:00] VITALS: BP 186/88
[2019-01-23] MEDS: DOXAZOSIN MESYLATE 4 MG TAB PO SCH (20:24)
[2019-01-24] VITALS: BP 172/70
[2019-01-24 04:00] VITALS: BP 158/64
[2019-01-24 05:30] LABS: HEMATOCRIT 29.1 % (36.0-47.0); HEMOGLOBIN 9.8 g/dl (12.0-15.5); MEAN CORPUSCULAR HEMOGLOBIN 34.1 pg (27.0-33.0); MEAN CORPUSCULAR HGB CONC 33.7 g/dl (32.0-36.5); MEAN CORPUSCULAR VOLUME 101.4 fl (80.0-96.0); PLATELET COUNT, AUTOMATED 307 10^3/uL (150-450); RED BLOOD COUNT 2.87 10^6/uL (4.00-5.40); WHITE BLOOD COUNT 5.8 10^3/uL (4.0-10.0)
[2019-01-24 05:46] LABS: CALCIUM LEVEL 8.1 MG/DL (8.8-10.2); CREATININE FOR GFR 2.62 MG/DL (0.55-1.30); GLOMERULAR FILTRATION RATE 18.5 (>32); POTASSIUM SERUM 3.6 MEQ/L (3.5-5.1)
[2019-01-24 08:00] VITALS: BP 160/78
[2019-01-24] MEDS: CARVedilol 12.5 MG TAB PO SCH ×2 (08:35→20:56)
[2019-01-24] MEDS: **hydrALAZINE** 50 MG TAB PO SCH ×4 (08:35→20:55)
[2019-01-24] MEDS: amLODIPine 10 MG TAB PO SCH (08:35)
[2019-01-24] MEDS: ALLOPURINOL 100 MG TAB PO SCH ×2 (08:35→20:55)
[2019-01-24] MEDS: OCUVITE 1 TAB PO SCH ×2 (08:35→20:57)
[2019-01-24] MEDS: FUROSEMIDE 20 MG TAB PO SCH (08:36)
[2019-01-24] MEDS: POTASSIUM CHLORIDE 10 MEQ SR TABLET PO SCH ×2 (08:36→20:55)
[2019-01-24 12:00] VITALS: BP 150/70
--- NOTE | 2019-01-24 14:08 | IPNPDOC ---
Date Seen The patient was seen on 01/24/19. Progress Note Pt seen and examined. Discussed her case with Dr Be who agrees she is unlikely to gain much from attempting L RA intervention, but is high risk for PAULA and needing dialysis post-procedure, which she absolutely does not want. Will not pursue renal arteriogram/angioplasty/stenting at this time as risks outweigh potential benefits in this patient. Pt agreeable to this plan. Please call with any questions or concerns. VS, I&O, 24H, Fishbone Vital Signs/I&O Vital Signs Date Time Temp Pulse Resp B/P (MAP) Pulse Ox O2 Delivery O2 Flow Rate FiO2 01/24/19 12:35 150/70 01/24/19 12:00 98.2 68 20 96 Room Air I&O- Last 24 Hours up to 6 AM 01/24/19 06:00 Intake Total 1650 ml Output Total 750 ml Balance 900 ml Laboratory Data 24H LABS Laboratory Tests 2 01/24/19 04:55: Nucleated Red Blood Cells % (auto) 0.0, Anion Gap 8, Glomerular Filtration Rate 18.5L, Calcium Level 8.1L CBC/BMP Laboratory Tests 01/24/19 04:55 Microbiology Microbiology 01/20/19 Gastrointestinal Tract Panel (PCR) - Final, Complete DIONNE MAYBERRY MD Jan 24, 2019 14:05
--- NOTE | 2019-01-24 14:39 | IPN ---
DATE: 01/23/2019 Margaret is seen 01/23/2019 in progressive care unit (PCU). Blood pressure was elevated. She denied any shortness of breath. She had a renal Doppler ultrasound that showed severe stenosis of the left renal artery, atrophic right kidney with probable occluded right renal artery. PHYSICAL EXAMINATION: 180/70 was her blood pressure that morning. VITAL SIGNS: Per flow sheet. She is alert, conversant. No jugular venous distention (JVD). LUNGS: Clear. HEART: Regular rate and rhythm. ABDOMEN: Soft, nontender. Trace peripheral edema. IMPRESSION AND PLAN: 1. Renal artery stenosis. I put in a consultation for Dr. Underwood. We discussed the case later in the day and she saw the patient in consultation. 2. Chronic kidney disease stage IV. Might complicate attempts to address the renal artery stenosis. 3. Anemia of chronic kidney disease. Hemoglobin and hematocrit (H and H) was stable.
[2019-01-24 16:00] VITALS: BP 148/65
[2019-01-24 17:09] LABS: PERCENT SATURATION 38.6 % (13.2-45.0)
[2019-01-24 20:00] VITALS: BP 170/73
--- NOTE | 2019-01-24 20:41 | CR ---
DATE OF CONSULTATION: 01/24/2019 CONSULTATION REPORT FOR: Luke Yin MD REASON FOR CONSULTATION: Severe left renal artery stenosis in this lady with advanced chronic kidney disease and difficult to control hypertension. HISTORY OF PRESENT ILLNESS: Mrs. Moreira is very well-known to me from prior followup in the office. She is an 84-year-old female with multiple chronic medical problems including coronary artery disease with prior SD and angioplasty, history of recent TAVR, history of diastolic congestive heart failure, history of stage IV of chronic kidney disease and difficult to control hypertension. She has problems with multiple antihypertensive medications and does not tolerate most of the medications. Even with current medications she has been relatively noncompliant and would not allow to increase the dose or she does not tolerate increased dose. She was admitted to [facility] with symptomatic anemia and was found to have a hemoglobin of about 8.4. She has been transfused and stable now. She is also known to have chronic essential thrombocytosis and has been on hydroxyurea. She was on antiplatelet therapy since her coronary intervention and aortic valve replacement. In any event, during this admission she had imaging done for her kidneys and renal ultrasound showed severe atrophia of the right kidney with size of 4.9 x 2.7 x 2.4 cm. Left kidney is 9.0 x 3.9 x 4.5 cm with no mass or hydronephrosis. Her renal artery Doppler study showed severe stenosis of left renal artery with peak systolic velocity of 478 cm/sec and renal to aortic ratio of 6.6. Right renal artery could not be visualized. Vascular surgery consultation was requested and the patient was seen by Dr. Underwood. She did not feel that patient is very suitable for intervention due to her significantly advanced kidney disease and low probability for improvement in her hypertension or kidney function with angioplasty. I was asked to see her to get an opinion about possible renal angioplasty and stent placement. PAST MEDICAL AND SURGICAL HISTORY: 1. Significant for difficult to control hypertension with intolerance for multiple antihypertensive medications. 2. Stage IV of chronic kidney disease. 3. Anemia with history of recurrent GI bleed. 4. History of thrombocytosis on chronic hydroxyurea therapy. 5. History of diastolic congestive heart failure. 6. History of coronary artery disease with prior SD and angioplasty with stents. 7. History of recent aortic valve replacement due to severe aortic stenosis. 8. History of gout. Past surgical history is significant for umbilical hernia repair and left inguinal hernia repair, tonsillectomy, D C, ERCP and sphincterotomy, TAVR and coronary angioplasty. She is intolerant to several antihypertensive and other medications. HOME MEDICATIONS: Include: - allopurinol 100 mg twice a day - aspirin 81 mg daily - carvedilol 25 mg twice a day - doxazosin 4 mg at bedtime - furosemide 20 mg daily - hydralazine 50 mg three times a day - hydroxyurea 500 mg five times a week - multivitamin one tablet daily - potassium chloride 10 mEq twice a day - Brilinta 90 mg twice a day - colchicine as needed for gout ALLERGIES: She has multiple allergies or intolerances which are recorded in her electronic records. PERSONAL AND SOCIAL HISTORY: The patient does not smoke and has no history of drug or alcohol use. FAMILY HISTORY: Significant for hypertension and coronary artery disease. REVIEW OF SYSTEMS: The patient was admitted with shortness of breath and weakness which has improved following transfusion of 2 units of packed RBCs. She denies any fever or chills at present. Ears, nose and throat are unremarkable. Cardiovascular system is significant for diastolic congestive heart failure, coronary artery disease, severe aortic stenosis, status post TAVR. She reports improved dyspnea after transfusion. Respiratory system is negative for cough or hemoptysis. GI system is significant for recurrent GI bleed. She has declined a colonoscopy. system is negative for dysuria or hematuria. She has known history of atrophic right kidney. Musculoskeletal system significant for history of gout and chronic degenerative arthritis. She denies any leg edema. Skin is negative for rash or ulcers. Endocrine system is negative for diabetes or thyroid problems. Hematological system is significant for chronic thrombocytosis and has been on chronic hydroxyurea therapy. PHYSICAL EXAMINATION: The patient is sitting in the chair at the time of my visit. Temperature 98.2 degrees Fahrenheit, heart rate 68 per minute and respiratory rate 20 per minute. Blood pressure 150/70 mmHg and oxygen saturation 96% on room air. Head is atraumatic. Neck is supple and JVD is not visible sitting upright. Pupils equal and reactive to light and sclera is anicteric. Extraocular muscles are intact. She has no oral thrush or ulcers and mucous membranes are moist and healthy. Heart exam reveals irregular S1 and S2 with a systolic murmur grade 2/6 but no pericardial friction rub. Lungs sound clear to auscultation bilaterally. Abdomen soft and nontender and bowel sounds are normal. There is no palpable organomegaly. Extremities have no cyanosis or clubbing. Skin has no rash or ulcers. Neurologically she is awake, alert and oriented times three. LABORATORY DATA: WBC count is 5.8, hemoglobin 9.8 and hematocrit 29.1. Platelets 307. On admission her hemoglobin was 8.2 and hematocrit 23.8. Today her sodium is 140, potassium 3.6, CO2 23, BUN 62 and creatinine 2.62 with GFR of 18.5 mL. Renal ultrasound done on 01/22/2019 showed right kidney 4.9 x 2.7 x 2.4 cm and left kidney 9.0 x 3.9 x 4.5 cm. Right renal artery not visualized. Left renal artery systolic velocity 478 cm/sec and renal to aortic ratio of 6.6. PROBLEMS: 1. Stage IV of chronic kidney disease. The patient has known history of advanced chronic kidney disease with atrophic right kidney and relatively small size of left kidney. She is known to have left renal artery stenosis. However, she is not felt to be suitable for intervention due to high risk for complications and very low chance of any improvement in her hypertension while no chance for improvement in her renal function. At this point her renal function is at about baseline. 2. Severe left renal artery stenosis. Patient has severely atrophic right kidney and right renal artery not visualized. She has heavy calcification of her vessels and very unlikely to have a successful left renal artery angioplasty. She is also high risk for decline in kidney function and ending up on dialysis. She does not wish to have dialysis at any cost. Renal artery angiogram or angioplasty is not advisable as the risks outweigh any potential benefit. 3. Hypertension. Her blood pressure has been chronically elevated and she gets very dizzy if her blood pressure is lowered. She is also intolerant of several antihypertensive medications and has been very reluctant for any increase in the dose of medications. In the hospital she is taking hydralazine 100 mg four times a day, while outpatient she had declined as of this date any increase in the dose of her hydralazine and has been taking only 50 mg three times a day. Blood pressure seems reasonably well-controlled with current antihypertensive medications and I would recommend to continue with the same. I have discussed with the patient and advised her to improve her compliance with current medications. With any renal artery intervention she is not likely to have significant improvement in her hypertension or kidney function but has significantly elevated risk for worsening kidney function and other complications like cholesterol embolization or vascular problems. 4. Anemia. She does have multifactorial anemia with most likely chronic GI bleed. Her anemia has improved following transfusion. I will add iron studies to her lab work and see if she has any iron deficiency. 5. Gout. She does have a history of chronic gout and should continue with allopurinol. Thank you for involving me in the care of Mrs. Moreira. I will follow her along with you.
[2019-01-24] MEDS: DOXAZOSIN MESYLATE 4 MG TAB PO SCH (20:57)
--- NOTE | 2019-01-24 21:51 | IPN ---
DATE: 01/24/2019 Margaret was seen on 01/24/2019. Dr. Underwood saw her in consultation. Appreciate her thoughts. She knows that she has renal artery stenosis. Will be amenable to angioplasty, possible stenting, but she has a history of gastrointestinal (GI) bleeds and thrombocytopenia that might limit the use of Plavix, as he is postoperatively and also has stage IV renal insufficiency that is a high risk for contrast-induced nephropathy. Might need dialysis postprocedure. PHYSICAL EXAMINATION: VITAL SIGNS: Stable. 146/72. GENERAL APPEARANCE: Alert, conversant. No jugular venous distention (JVD). LUNGS: Clear. HEART: Regular rate and rhythm. ABDOMEN: Soft, nontender. No peripheral edema. LABORATORY DATA: Hemoglobin stable at 9.8. Creatinine stable at 2.67. IMPRESSION AND PLAN: I have a call in for Dr. Be to see the patient in consultation. It is a complicated decision whether she should proceed with intervention on her stenotic left renal artery. Will get his input on his. Blood pressure is actually pretty well controlled today for the first day. She is on aggressive medication for this. If she is not deemed to be a candidate for intervention, she could probably be discharged tomorrow.
[2019-01-25] VITALS: BP 169/86
[2019-01-25 04:00] VITALS: BP 173/82
[2019-01-25 05:00] LABS: HEMATOCRIT 29.9 % (36.0-47.0); HEMOGLOBIN 9.5 g/dl (12.0-15.5); MEAN CORPUSCULAR HEMOGLOBIN 33.7 pg (27.0-33.0); MEAN CORPUSCULAR HGB CONC 31.8 g/dl (32.0-36.5); PLATELET COUNT, AUTOMATED 300 10^3/uL (150-450); RED BLOOD COUNT 2.82 10^6/uL (4.00-5.40); WHITE BLOOD COUNT 5.7 10^3/uL (4.0-10.0)
[2019-01-25 05:15] LABS: CALCIUM LEVEL 7.7 MG/DL (8.8-10.2); CREATININE FOR GFR 2.77 MG/DL (0.55-1.30); GLOMERULAR FILTRATION RATE 17.3 (>32)
[2019-01-25 08:00] VITALS: BP 188/62
[2019-01-25] MEDS ORDERED: AMLO10TA5 PO (08:06)
[2019-01-25] MEDS ORDERED: CARV12.5 PO (08:06)
[2019-01-25] MEDS ORDERED: HYDR500C3 PO (08:06)
[2019-01-25] MEDS ORDERED: HYDR50TA PO (08:06)
[2019-01-25] MEDS: amLODIPine 10 MG TAB PO SCH (09:19)
[2019-01-25] MEDS: **hydrALAZINE** 50 MG TAB PO SCH ×2 (09:19→12:27)
[2019-01-25] MEDS: CARVedilol 12.5 MG TAB PO SCH (09:20)
[2019-01-25] MEDS: POTASSIUM CHLORIDE 10 MEQ SR TABLET PO SCH (09:20)
[2019-01-25] MEDS: FUROSEMIDE 20 MG TAB PO SCH (09:20)
[2019-01-25] MEDS: ALLOPURINOL 100 MG TAB PO SCH (09:20)
[2019-01-25] MEDS: OCUVITE 1 TAB PO SCH (09:20)
--- NOTE | 2019-01-25 09:41 | DSES ---
DATE OF ADMISSION: 01/20/2019 DATE OF DISCHARGE: PRIMARY CARE PROVIDER: YUE Means ATTENDING PHYSICIAN: Dr. Ashish Bustillo CONSULTANTS: Dr. Christina Underwood and Dr. Hardeep Be HISTORY OF PRESENT ILLNESS: This is an 83-year-old female who was sent to the emergency department by her center director for evaluation of red bloody diarrhea for 2 days. Workup in the emergency department proved positive for a hemoglobin of 8.2 and hematocrit of 23.2. The patient was transfused in the emergency department and admitted to the family medicine service. HOSPITAL COURSE: The patient was found to have severe atrophy of her right kidney with renal artery stenosis noted. Subsequently, nephrology and vascular surgery were consulted for further evaluation. The concern for angioplasty and possible stent of the severe stenosis of the left renal artery based on ultrasound results were concerning given use of IV contrast and potential for worsening renal function and potential for dialysis, which the patient declined. Nephrology was consulted and also agreed that the risks of the procedure outweighed the benefits. The patient's renal function has remained stable and her blood pressures have improved with escalation of antihypertensives. The patient received 2 units of packed red cells and her hemoglobin has remained stable throughout hospitalization. She has had no further episodes of bloody diarrhea. She denies chest pain, blurred vision, dizziness, or shortness of breath. She denies abdominal pain or nausea. The patient has been independent with activities of daily living throughout her hospitalization and is tolerating a full regular diet. IMAGING: Renal ultrasound is already stated, as well as chest x-ray on 01/20/2019, which was negative for acute process. Consultations performed by vascular surgery, Dr. Underwood, as well as nephrology, Dr. Hardeep Be. PHYSICAL EXAMINATION: VITAL SIGNS: Stable. Blood pressure is ranging anywhere from 150 to 172 over 80s, heart rate is stable in the 60 to 70 range. The patient has remained afebrile. Oxygen saturations are 97 to 99% on room air. HEENT: Neck is supple without lymphadenopathy or jugular venous distention (JVD). CARDIOVASCULAR: Heart rate and rhythm are regular. PULMONARY: Lungs are clear to auscultation bilaterally. ABDOMEN: Soft and nontender. EXTREMITIES: Bilateral lower extremities are without any edema. Positive pedal pulses bilaterally. NEUROLOGIC: The patient is alert and oriented times three, conversation is congruent. THe patient maintains eye contact. ASSESSMENT: 1. Acute blood loss anemia secondary to rectal bleeding. The patient declined colonoscopy for workup. 2. Chronic kidney disease stage IV. 3. Hypertension. 4. Left renal artery stenosis. 5. Chronic thrombocytosis. 6. Chronic diastolic congestive heart failure (CHF). 7. Coronary artery disease. 8. Aortic valve replacement. 9. Gout. PLAN: The patient will be discharged to home. Diet is as tolerated. Activity is as tolerated. She will followup with primary care provider within the next 5 to 7 days. She will followup with her head greenskeeper within the next 2 weeks. DISCHARGE MEDICATIONS: - amlodipine 10 mg one daily - carvedilol 37.5 mg by mouth twice a day - hydralazine 100 mg by mouth four times a day All of these medications are changed prescriptions. - hydroxyurea 500 mg by mouth daily, this is a decrease from 500 mg five times per week and 1000 mg on Mondays and . 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 Dosing was changed due to her renal function. - allopurinol 100 mg by mouth twice a day - colchicine 0.6 mg by mouth daily as needed for gout attack - doxazosin 4 mg by mouth at night - furosemide 20 mg by mouth daily - multivitamin one tablet daily - potassium chloride 10 mEq by mouth twice a day - Brilinta 90 mg by mouth twice a day - PreserVision multivitamin one tablet by mouth twice a day MEDICATIONS STOPPED DURING THIS HOSPITALIZATION: - aspirin 81 mg daily - carvedilol 25 mg - hydralazine 50 mg - prior hydroxyzine The patient was given her Fluvac while she was here in the facility. The patient is discharged in stable and satisfactory condition with no further questions at the time of discharge.
[2019-01-25 12:27] VITALS: BP 188/62
== END 2019-01-25 16:57 | disposition home health service (06) | DRG 378 ==
LOC: M ED 19:03 → M ED INP 21:30 → M PCU 01-21 17:02
PROVIDERS: ADMIT Internal Medicine; ATTEND Family Medicine
PROC: 30233N1 Transfusion of Nonautologous Red Blood Cells into Peripheral Vein, Percutaneous Approach (ICD-10-PCS; principal; 2019-01-20)
DX: K92.2 Gastrointestinal hemorrhage, unspecified (principal); I50.32 Chronic diastolic (congestive) heart failure; N18.4 Chronic kidney disease, stage 4 (severe); D62 Acute posthemorrhagic anemia; I13.0 Hypertensive heart and chronic kidney disease with heart failure and stage 1 through stage 4 chronic kidney disease, or unspecified chronic kidney disease; I70.1 Atherosclerosis of renal artery; I25.10 Atherosclerotic heart disease of native coronary artery without angina pectoris; Z95.2 Presence of prosthetic heart valve; M10.9 Gout, unspecified; Z79.899 Other long term (current) drug therapy; D63.1 Anemia in chronic kidney disease; D69.6 Thrombocytopenia, unspecified; I25.2 Old myocardial infarction; Z79.82 Long term (current) use of aspirin; Z88.0 Allergy status to penicillin; Z88.8 Allergy status to other drugs, medicaments and biological substances

== ENCOUNTER 2019-01-30 00:34 | Inpatient (IN) | payer MEDICARE ==
[2019-01-30] VITALS (7 sets, daily range): BP systolic 133–162; BP diastolic 60–70
[~2019-01-30] VITALS: Ht 152.4 cm; Wt 63.5 kg
[~2019-01-30 00:34] MED LIST changes: +AMLO10TA5 PO; +HYDR50TA PO; +PRESCAP PO
[2019-01-30] MEDS ORDERED: IPRATROPIUM 0.02% SOLN 0.5MG/2.5 ML NEB As Ordered ONE (00:49)
[2019-01-30] MEDS ORDERED: IPRATROPIUM 0.5MG/ALBUTEROL 2.5MG INH SOL UD 3ML (DUONEB)(J7620) As Ordered ONE (00:50)
[2019-01-30 00:59] LABS: BASO # 0.1 10^3/uL (0.0-0.2); BASO % 0.3 % (0.0-1.0); EOS # 0.1 10^3/uL (0.0-0.5); EOS % 0.8 % (0.0-3.0); HEMATOCRIT 29.2 % (36.0-47.0); HEMOGLOBIN 9.4 g/dl (12.0-15.5); LYMPH # 0.7 10^3/uL (1.5-5.0); LYMPH % 3.6 % (24.0-44.0); MEAN CORPUSCULAR HEMOGLOBIN 33.6 pg (27.0-33.0); MEAN CORPUSCULAR HGB CONC 32.2 g/dl (32.0-36.5); MEAN CORPUSCULAR VOLUME 104.3 fl (80.0-96.0); MONO # 1.8 10^3/uL (0.0-0.8); MONO % 9.7 % (0.0-5.0); NEUTROPHILS # 15.4 10^3/uL (1.5-8.5); NEUTROPHILS % 84.8 % (36.0-66.0); PLATELET COUNT, AUTOMATED 388 10^3/uL (150-450); WHITE BLOOD COUNT 18.2 10^3/uL (4.0-10.0)
[2019-01-30] MEDS ORDERED: NITROGLYCERIN 2% OINT 1 GM *U/D* PKT TOP ONE (01:00)
[2019-01-30] MEDS ORDERED: FUROSEMIDE 100 MG/10 ML VIAL (J1940) IV ONE (01:00)
[2019-01-30 01:26] LABS: BLOOD UREA NITROGEN 58 MG/DL (7-18); CALCIUM LEVEL 8.1 MG/DL (8.8-10.2); CARBON DIOXIDE LEVEL 23 MEQ/L (21-32); CHLORIDE LEVEL 105 MEQ/L (98-107); CK-MB VALUE MASS 2.6 NG/ML (<3.6); CPK CREATINE PHOSPHOKINASE 101 U/L (26-192); CREATININE FOR GFR 2.84 MG/DL (0.55-1.30); GLOMERULAR FILTRATION RATE 16.8 (>32); GLUCOSE, FASTING 151 MG/DL (70-100); MB/CK RELATIVE INDEX 2.57 (< OR =4); NT-PRO BNP 8330 PG/ML (<450); POTASSIUM SERUM 4.7 MEQ/L (3.5-5.1); SODIUM LEVEL 136 MEQ/L (136-145); TROPONIN I < 0.02 NG/ML (< 0.10)
[2019-01-30] MEDS ORDERED: HYDR-3911 PO (01:40)
[2019-01-30] MEDS ORDERED: CARV12.5 PO (01:40)
[2019-01-30] MEDS ORDERED: HYDR500C3 PO (01:40)
[2019-01-30] MEDS ORDERED: AMLO10TA5 PO (01:40)
[2019-01-30] MEDS ORDERED: hydrALAZINE INJ 20 MG/ML VIAL IV STA (01:47)
[2019-01-30] MEDS ORDERED: COLCHICINE 0.6 MG TAB PO PRN (03:45)
[2019-01-30] MEDS ORDERED: ALBUTEROL SULFATE 2.5 MG/0.5 ML INH NEB SOLN NEB ONE (05:00)
--- NOTE | 2019-01-30 06:03 | IPNPDOC ---
Text Note Date of Service The patient was seen on 01/30/19. NOTE Was paged about lack of urine since admission. Bladder scan was negative, how ever patient was in discomfort. I ordered a le cath. During the insertions, nursing staff reported a bulging mass in the her vagina. It was able to be reduced and urine was once again started flowing. Differential dx for her bulging protrusion could be vaginal prolapse, bladder prolapse vs uterine prolapse. Once he CHF exacerbation has resolve. Patient can follow up at out patient for diagnosis and management. VS,Fishbone, I+O VS, Fishbone, I+O Laboratory Tests 01/30/19 00:49 Vital Signs Date Time Temp Pulse Resp B/P (MAP) Pulse Ox O2 Delivery O2 Flow Rate FiO2 01/30/19 03:30 98.8 73 16 149/66 (93) 93 Nasal Cannula 1.0 I&O- Last 24 Hours up to 6 AM 01/30/19 06:00 Intake Total 0 ml Output Total 100 ml Balance -100 ml GME ATTESTATION GME ATTESTATION My faculty preceptor for this patient encounter was physically present during the encounter and was fully available. All aspects of the patient interview, examination, medical decision making process, and medical care plan development were reviewed and approved by the faculty preceptor. The faculty preceptor is aware and concurs with the plan as stated in the body of this note and will attest to such by his/her cosignature. HOANG SETHI DO Jan 30, 2019 05:55
[2019-01-30 06:44] LABS: C REACTIVE PROTEIN QUANTITATIV 5.65 MG/DL (0.00-0.30); CHOLESTEROL LEVEL 138 MG/DL (<200); CHOLESTEROL RISK RATIO 2.555 (<5); CK-MB VALUE MASS 2.8 NG/ML (<3.6); CPK CREATINE PHOSPHOKINASE 86 U/L (26-192); HDL CHOLESTEROL 54 MG/DL (>40); LDL CHOLESTEROL 68 MG/DL (<100); MAGNESIUM LEVEL 2.4 MG/DL (1.8-2.4); MB/CK RELATIVE INDEX 3.26 (< OR =4); NON-HDL-C 84 MG/DL; TRIGLYCERIDES LEVEL 78 MG/DL (<150); TROPONIN I < 0.02 NG/ML (< 0.10)
--- NOTE | 2019-01-30 07:58 | REP ---
Clinical: Dyspnea. Comparison: 01/20/2019. Findings: This time and cardiac silhouette are stable. Lung salazar demonstrate diffuse chronic interstitial changes along with calcified adenopathy suggesting prior granulomas disease. Evidence for aortic valve repair. No consolidation, effusion, or pneumothorax. Skeletal structures intact. Impression: Chronic-appearing changes. No acute cardiopulmonary process appreciated. Electronically Signed by Carlos Mejia MD 01/30/2019 07:50 A
--- NOTE | 2019-01-30 08:14 | HPE ---
DATE OF ADMISSION: 01/30/2019 PRIMARY CARE PHYSICIAN: Luke Yin MD CHIEF COMPLAINT: Shortness of breath. HISTORY OF PRESENTING ILLNESS: 84-year-old female with history of grade 2 diastolic dysfunction, chronic kidney disease stage IV, renal artery stenosis, not a surgical candidate, refused stent placement during previous admission, discharged on 01/26/2019, presents to the emergency room with a 2 day history of worsening shortness of breath initially noted yesterday with dyspnea on exertion, unable to walk 3-4 feet. The patient could not get up from the bathroom yesterday and had to stay there for 15 minutes until she got enough strength and could breathe to get and call for help. She denies any fever or cough, headache, chest pain, pressure or tightness, palpitations or lightheadedness. She lives along and was able to call for help and was brought into the emergency room and found to be hypoxic, 82% on room air. Blood pressure was 164/74. She was put on 2 liters nasal cannula. Chest x-ray showed pulmonary edema and hospital was called to admit for congestive heart failure and uncontrolled hypertension. The patient admits to noncompliance with salt and water intake. Usually has a glass of water with her at all times in a water bottle but does not drink more than 6 glasses of water everyday. She has not been watching her salt intake and has not been weighing herself, but per that family she remains at 66 kg. The patient has had 2-3 pillow orthopnea. No significant lower extremity edema but has noted significant dizziness on exertion. She has not had a followup appointment. She has not had a followup with her circulator or automotive artist. She was recently discharged on 01/26/2019. PAST MEDICAL HISTORY: 1. Renal artery stenosis. 2. Uncontrolled hypertension. 3. Chronic kidney disease, stage IV. 4. Recurrent gastrointestinal (GI) bleed. 5. Aortic valve replacement due to severe aortic stenosis with transcatheter aortic valve replacement (TAVR). 6. Gout. 7. Thrombocytosis, on chronic Hydrea. 8. Diastolic congestive heart failure. 10. History of CAD. 11. Myocardial infarction (MA). 12. Angioplasty with stents. 13. Renal artery stenosis. PAST SURGICAL HISTORY: 1. TAVR. 2. Coronary angioplasty with stent placement. 3. Inguinal hernia repair on the left. 4. Tonsillectomy. 5. Umbilicus hernia repair. 6. Dilation and curettage (D and C). 7. Endoscopic retrograde cholangiopancreatography (ERCP) with sphincterotomy. ALLERGIES: The patient is allergic to MULTIPLE ANTIHYPERTENSIVES including AMILORIDE, AMLODIPINE, ATENOLOL, CHLORTHALIDONE, CLONIDINE. Also allergic to AMANTADINE, ANAGRELIDE, CALCITRIOL, CETIRIZINE, CLARITHROMYCIN, DOXYCYCLINE, ERYTHROMYCIN. HOME MEDICATIONS: - allopurinol 100 mg twice a day - Norvasc 10 mg daily - Coreg 37.5 twice a day - colchicine 0.6 as needed - doxazosin 4 mg nightly - Lasix 20 mg daily - hydralazine 100 mg four times a day - Hydrea 500 mg daily - multivitamin daily - potassium chloride 10 mEq twice a day - PreserVision 1 capsule twice a day SOCIAL HISTORY: Denies any alcohol, cigarette, recreational drug use. Lives alone. DO NOT RESUSCITATE, DO NOT INTUBATE. FAMILY HISTORY: Noncontributory due to advanced age of 84. REVIEW OF SYSTEMS: Per HPI, 12 point of system otherwise negative. PHYSICAL EXAMINATION: No temperature is noted. Pulse 70. Respiratory rate 40. Blood pressure 164/74, 82% on room air, 93% on 1 liter nasal cannula. Generally, the patient is in moderate distress. Positive use of respiratory accessory muscles. Jugular venous distention (JVD) is noted. Dry mucous membranes. Pupils round and reactive. Answering questions appropriately. Awake, alert, oriented to herself, place. No cervical lymphadenopathy or thyromegaly. Lungs: Diminished, bilateral rales. Heart: S1, S2. Sinus rhythm. Abdomen is soft, nontender, nondistended. Extremities: Trace edema bilateral lower extremities. EKG: Ventricular rate of 72. Left axis deviation. Left ventricular hypertrophy (LVH). Sinus rhythm. LABORATORY DATA: White count 18.2, hemoglobin 9.4, hematocrit 29, platelet count 388. Sodium 136, potassium 4.7, chloride 105, bicarbonate 23, BUN 58, creatinine 2.8, glucose 151. IMAGING STUDIES: Official report chest x-ray unavailable. 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 The patient will be admitted as an inpatient for two midnights for the following issues. 1. Congestive heart failure, diastolic dysfunction, acute exacerbation. The patient has been admitted to a telemetry unit to rule out arrhythmias. Strict intake and output, daily weights. The patient has been given Lasix [address] Be has been consulted for help in management in light of renal artery stenosis and stage IV renal failure in case of worsening azotemia. The patient currently does not have electrolytes abnormalities, but will monitor with serial metabolic panels. She does see Dr. Khan for her circulator and has not had a followup due to recurrent hospital admission for heart failure. Cardiac markers have been cycled. Repeat EKG should the patient have chest pressure, tightness or other signs of coronary artery ischemia. 2. Chronic kidney disease, stage IV. Currently with congestive heart failure and fluid overload. Defer to nephrology for diuresis. She has already received 100 mg of intravenous Lasix. Strict intake and output, daily weights. Renally dose all medications and avoiding nephrotoxins. 3. Hypertensive heart disease secondary to uncontrolled hypertension and renal artery stenosis. The patient is resumed on her home dose of blood pressure medications including hydralazine 100 mg four times a day, Coreg 37.5 twice a day, Norvasc 10 mg daily. Defer to Dr. Be for further changes in medications. 4. Renal artery stenosis. Not a candidate for stent placement. Defer to nephrology for blood pressure management. 5. History of gastrointestinal bleeds and blood loss anemia. The patient states that she has a blood stain on her diaper at home. Her current hemoglobin is stable at 9.4, unchanged from 9.5 on previous admission. She does not have melena, hematemesis. Due to history of CAD, MA, she had previously been continued on aspirin. 6. Chronic thrombocytosis. On Hydrea, which she is currently renally dosed. 7. History of CAD, myocardial infarction. In light of congestive heart failure, recycling her cardiac markers and resuming her on her home medications Coreg, hydralazine. Unable to use angiotensin-converting enzyme (RYANN) inhibitors or angiotensin receptor alyx (ARB) secondary to intolerance as well as renal failure. 8. Aortic valve replacement due to severe aortic stenosis via TAVR, stable. 9. History of gout. On colchicine. CODE STATUS: DO NOT RESUSCITATE, DO NOT INTUBATE. DIET: Renal diet. MTDD
[2019-01-30] MEDS: MULTIVITAMINS/MINERALS THERAP 1 TAB PO SCH (08:55)
[2019-01-30] MEDS: amLODIPine 10 MG TAB PO SCH (08:55)
[2019-01-30] MEDS: OCUVITE 1 TAB PO SCH ×2 (08:55→20:30)
[2019-01-30] MEDS: **hydrALAZINE** 50 MG TAB PO SCH ×4 (08:56→20:31)
[2019-01-30] MEDS: POTASSIUM CHLORIDE 10 MEQ SR TABLET PO SCH ×2 (08:56→20:31)
[2019-01-30] MEDS: ALLOPURINOL 100 MG TAB PO SCH ×2 (08:56→20:31)
[2019-01-30] MEDS: CARVedilol 12.5 MG TAB PO SCH ×2 (08:56→20:30)
[2019-01-30] MEDS ORDERED: FUROSEMIDE 20 MG TAB PO SCH (09:00)
[2019-01-30] MEDS: ISOSORBIDE MON. (IMDUR) 60 MG XR TAB PO SCH (12:35)
[2019-01-30] MEDS: FUROSEMIDE 40 MG/4 ML VIAL (J1940) IV SCH ×2 (14:19→22:08)
[2019-01-30] MEDS: HYDROXYUREA 500 MG CAP PO SCH (14:24)
--- NOTE | 2019-01-30 18:04 | CR ---
DATE OF CONSULTATION: 01/30/2019 REQUESTING PHYSICIAN: Dr. Luke Yin. CONSULTING PHYSICIAN: Dr. Bailon. REASON FOR CONSULTATION: Management of congestive heart failure (CHF) and hypertension in this patient with chronic kidney disease stage IV. CHIEF COMPLAINT: Patient presented to the hospital yesterday with progressive shortness of breath. HISTORY OF PRESENT ILLNESS: Margaret Moreira is an 84-year-old female with past medical history of chronic kidney disease stage IV, well-known to nephrology service from outpatient nephrology clinic followup. She has history of atrophic right kidney and stenosis of the left renal artery that supplies a solitary functioning left kidney. She has history of resistant hypertension as well and patient refuses to have the angiogram of the left renal artery and she also refuses to make any changes to her antihypertensive regimen because she complains of a lot of side effects with multiple medications. She has a baseline chronic kidney disease stage IV with a creatinine of around 2, which has been slowly deteriorating. She presented to the emergency room yesterday with progressive shortness of breath. She was found to be hypoxemic in the emergency room with a pulse oximetry of 82%. Further investigation, including chest x-ray, showed pulmonary edema. She was admitted under the hospitalist service with acute decompensated congestive heart failure and hypertensive emergency. Patient was found to have a creatinine of 2.8 with a GFR of around 17 on arrival. Nephrology service was called for further help in the management of this patient with chronic kidney disease stage IV. I saw and evaluated the patient today morning at the bedside. Patient reports that her breathing is getting slightly better today as compared with yesterday. She denies any fevers or chills at this time. She is already being diuresed with [id number] intravenous (IV) Lasix. She was already given Lasix injections at nighttime as well. PAST MEDICAL HISTORY: Past medical history of: 1. Chronic kidney disease stage IV, last baseline creatinine is around 2. 2. History of atrophic right kidney and history of stenosis of the left renal artery. 3. Renovascular hypertension. 4. History of gastrointestinal (GI) bleed. 5. History of transcatheter aortic valve replacement (TAVR) because of severe aortic stenosis. 6. Chronic gout secondary to chronic kidney disease. 7. Thrombocytosis requiring Hydrea. 8. Chronic diastolic congestive heart failure. 9. History of coronary artery disease status post stents in the past. PAST SURGICAL HISTORY: 1. Status post TAVR procedure. 2. History of angioplasty and stents in the past. 3. Inguinal hernia repair in the in the left. 4. Status post tonsillectomy. 5. Status post umbilical hernia repair. 6. History of dilation and curettage (D C) in the past. 7. Endoscopic retrograde cholangiopancreatography (ERCP) with sphincterotomy in the past. ALLERGIES: Patient reports allergies to multiple medications, but most of them are intolerance, which include: AMILORIDE, AMLODIPINE, ATENOLOL, CHLORTHALIDONE, CLONIDINE. There are no real rashes or anaphylaxis reported with these medications. Every time she started the medications, she had so some sort of side effect and she stopped them. HOME MEDICATIONS: Patient is on: - allopurinol 100 mg twice a day - Norvasc 10 mg daily - Coreg 37.5 mg by mouth twice a day - colchicine as needed - doxazosin 4 mg at night - Lasix 20 mg daily - hydralazine 100 mg four times a day - Hydrea 500 mg daily - multivitamin - potassium chloride 10 mEq twice a day - PreserVision capsules SOCIAL HISTORY: Patient denies any smoking, illicit drug abuse or alcohol abuse. REVIEW OF SYSTEMS CONSTITUTIONAL: She denies any fevers or chills. EYES: She denies any blurry vision, double vision. EARS/NOSE/THROAT (ENT): She denies any dysphagia, odynophagia. CARDIOVASCULAR: She denies any palpitation. She does report shortness of breath and orthopnea. RESPIRATORY: She denies any cough, but she does report shortness of breath on mild exertion. GASTROINTESTINAL (GI): She denies any nausea, vomiting. GENITOURINARY: She denies any dysuria or hematuria. MUSCULOSKELETAL: She denies any muscle aches and pains. SKIN. She denies any rashes or ulcers. PSYCHIATRIC: She denies any depression or anxiety. ENDOCRINE: She denies any hyperthyroidism, hypothyroidism. HEMATOLOGY/ONCOLOGY: She denies any easy bleeding or bruising. All other review of systems is negative. PHYSICAL EXAMINATION: GENERAL: Patient is awake, alert, oriented times three, laying in bed. VITAL SIGNS: Temperature is on 99.6 degrees Fahrenheit, blood pressure 150/62, pulse is 72, respiratory rate of 20, saturating 96% on nasal cannula at 2 liters. HEAD AND NECK EXAM: Extraocular muscles intact. Pupils equally round and reactive to light. Mucous membranes are moist. Neck is supple. There is moderate elevation of jugular venous distention (JVD). CARDIOVASCULAR: S1, S2. Regular rate. 1+ edema of the bilateral lower extremities. RESPIRATORY: Decreased breath sounds bases with diffuse inspiratory crackles at the bases bilaterally. ABDOMEN: Soft. Positive bowel sounds. Nontender. No organomegaly. GENITOURINARY: She has an indwelling Valles catheter. Urine in the bag is clear. MUSCULOSKELETAL: No clubbing or cyanosis. Pulses are 2+. CENTRAL NERVOUS SYSTEM (ACTUARIAL TRAINEE): No focal deficit. Power is 5/5 in all extremities. SKIN: No rashes or ulcers. LABORATORY REVIEW: Complete blood count (CBC) showed a WBC 18.2, hemoglobin 9.4, platelets are 398. Urinalysis showed 1+ protein. Basic metabolic panel (BMP) showed sodium 136, potassium 4.7, chloride 105, bicarbonate 23, BUN 58, creatinine is 2.8, calcium 8.1, magnesium is 2.4. C-reactive protein is 5.6. BNP is 8330. TSH is 4.3. MICROBIOLOGY: Respiratory viral panel is negative. IMAGING STUDIES: A chest x-ray was done today morning which showed no acute cardiopulmonary process. CURRENT INPATIENT MEDICATIONS: Patient's medications include: - DuoNebs one dose - allopurinol 100 mg by mouth twice a day - amlodipine 10 mg by mouth daily - Coreg 37.5 mg by mouth twice a day - doxazosin 4 mg at bedtime. - She has been started on Lasix 80 mg intravenous (IV) every 8 hours - hydralazine 10 mg four times a day - Hydrea 500 mg by mouth daily - isosorbide 60 mg by mouth daily - multivitamin one tablet by mouth daily - potassium chloride 10 mEq by mouth twice a day. ASSESSMENT: An 84-year-old female with chronic kidney disease stage IV, atrophic right kidney, left renal artery stenosis, renovascular hypertension, admitted this time with acute decompensated diastolic congestive heart failure and hypertensive urgency. PLAN: 1. Acute kidney injury superimposed on chronic kidney disease stage IV. Patient's renal function is gradually declining. She used to have a baseline creatinine of around 2-2.5. Today, her creatinine is 2.8. We have discussed the possibility of doing the left renal artery stenting. She has refused that and she also refuses to have the further preparation done for renal replacement therapy, including arteriovenous (AV) fistula or peritoneal dialysis (PD) catheter placement. She states, "When my time comes, let me go." At this time, I will continue to optimize her volume status and her blood pressure. 2. Acute decompensated diastolic congestive heart failure. It is secondary to left renal artery stenosis and worsening renal function and probable noncompliance with medications. Continue Lasix 80 mg IV every 8 hours for now. 3. Renovascular hypertension. Patient either refuses to change the medication or does not take the medications that are prescribed to her. At this time, blood pressure is improving with the current dose of amlodipine 10 mg daily, hydralazine 100 mg four times a day and Coreg 37.5 mg by mouth twice a day, along with isosorbide. Continue the current medications. Volume status is being optimized with Lasix and patient refused to have the left-sided renal angiogram done. 4. Chronic gout secondary to chronic kidney disease. Continue current dose of allopurinol 100 mg by mouth twice a day. 5. Anemia in chronic kidney disease. Patient is not on erythropoiesis stimulating agent (KYRA) at this time. Check the iron levels with tomorrow morning labs. Thank you for involving me in the care of this patient. I shall be happy to follow the patient along with you tomorrow morning.
[2019-01-30] MEDS: DOXAZOSIN MESYLATE 4 MG TAB PO SCH (20:30)
[2019-01-31] VITALS (24 sets, daily range): BP systolic 137–170; BP diastolic 63–74; O2SAT 94–98
[2019-01-31 05:38] LABS: HEMATOCRIT 22.9 % (36.0-47.0); HEMOGLOBIN 7.7 g/dl (12.0-15.5); MEAN CORPUSCULAR HEMOGLOBIN 33.8 pg (27.0-33.0); MEAN CORPUSCULAR HGB CONC 33.6 g/dl (32.0-36.5); MEAN CORPUSCULAR VOLUME 100.4 fl (80.0-96.0); PLATELET COUNT, AUTOMATED 343 10^3/uL (150-450); RED BLOOD COUNT 2.28 10^6/uL (4.00-5.40); WHITE BLOOD COUNT 9.5 10^3/uL (4.0-10.0)
[2019-01-31] MEDS: FUROSEMIDE 40 MG/4 ML VIAL (J1940) IV SCH (06:04)
[2019-01-31 06:10] LABS: CALCIUM LEVEL 8.2 MG/DL (8.8-10.2); CREATININE FOR GFR 3.45 MG/DL (0.55-1.30); GLOMERULAR FILTRATION RATE 13.4 (>32); POTASSIUM SERUM 3.6 MEQ/L (3.5-5.1)
[2019-01-31 07:43] LABS: PERCENT SATURATION 18.9 % (13.2-45.0)
[2019-01-31] MEDS: ALLOPURINOL 100 MG TAB PO SCH ×2 (08:15→20:50)
[2019-01-31] MEDS: OCUVITE 1 TAB PO SCH ×2 (08:15→20:50)
[2019-01-31] MEDS: HYDROXYUREA 500 MG CAP PO SCH (08:15)
[2019-01-31] MEDS: CARVedilol 12.5 MG TAB PO SCH ×2 (08:15→20:51)
[2019-01-31] MEDS: MULTIVITAMINS/MINERALS THERAP 1 TAB PO SCH (08:15)
[2019-01-31] MEDS: POTASSIUM CHLORIDE 10 MEQ SR TABLET PO SCH ×2 (08:16→20:50)
[2019-01-31] MEDS: **hydrALAZINE** 50 MG TAB PO SCH ×4 (08:16→20:50)
[2019-01-31] MEDS: ISOSORBIDE MON. (IMDUR) 60 MG XR TAB PO SCH (08:16)
[2019-01-31] MEDS: amLODIPine 10 MG TAB PO SCH (08:16)
--- NOTE | 2019-01-31 11:41 | ECGEPIP ---
[facility] - ED Test Date: 2019-01-30 Pat Name: SUSIE CEJA Department: Room: I4328-55 Gender: Female Police Judge: ankit : [id number] Requested By: WANG GASTON Order Number: [id number] Reading MD: Sonal Vasques Measurements Intervals Beals Rate: 72 P: DE: 0 QRS: -27 QRSD: 106 T: 80 QT: 402 QTc: 442 Interpretive Statements SUPRAVENTRICULAR RHYTHM BORDERLINE LEFT AXIS DEVIATION LEFT VENTRICULAR HYPERTROPHY AND ST-T CHANGE BASELINE ARTIFACT LIMITS INTERPRETATION Electronically Signed on 01-31-2019 11:41:37 EST by Sonal Vasques
[2019-01-31] MEDS: FUROSEMIDE 40 MG TAB PO SCH (12:31)
--- NOTE | 2019-01-31 14:26 | IPN ---
DATE: 01/31/2019 Margaret was admitted with complaints of dyspnea. Basilar rales were noted on exam, acute renal failure. She has long history of known renal artery stenosis on the remaining perfused kidney. The other one is atrophic. She had her previous hospital stay, had declined intervention because of possible concerns for contrast-induced renal failure; therefore, no dilatation of probable aortic stenosis could be carried out. She has asked me to obtain a consultation by nephrology service, Dr. Bailon. She had a modest diuresis with initial treatment. We continued the diuresis yesterday, which has, as anticipated, resulted in decrease in her renal function. Today she feels okay. She says or dyspnea is improved. OBJECTIVE: Blood pressure 166/72, 155/68, 99.2 temperature at midnight, 98.7 this morning, heart rate 77, oxygen saturation 95% on 2 liters. LABORATORY DATA: Shows a hemoglobin of 7.7, having dropped from overnight from 9.4. Sedimentation rate was 83. BUN is up to 69, creatinine up to 3.45 from yesterday's 2.84. TSH yesterday was 4.370. It is not clear whether this represents an acute stress response or some evidence of hypothyroidism. Will need to be trended. BNP was 8330 on admission, has not been rechecked. Urinalysis showed 1+ protein, but small mucous, small amorphous sediment IMAGING STUDIES: Chest x-ray was interpreted as showing no acute cardiopulmonary process, but this showed diffuse chronic interstitial changes more compatible, according to radiology, with chronic granulomatous disease. Examination today shows diminished but equal expansion of her chest with no wheezing, rales or rhonchi. HEART: Regular rhythm. No murmur was noted. ABDOMEN: Soft and nontender. She has not had visible stool that was bloody overnight. ASSESSMENT: 1. Chronic renal failure stage IV. 2. Hypertension. 3. Renal artery stenosis. 4. Atretic right kidney. 5. Aortic stenosis of the left kidney. 6. History of gastrointestinal (GI) bleed. 7. History of transcatheter aortic valve replacement (TAVR) for severe aortic stenosis. 8. History of essential thrombocytosis, currently being treated with hydroxyurea. Again, note that her platelet count of 343,000 contributes to her anemia, including chronic kidney disease, side effect of hydroxyurea and possible GI blood loss anemia this time is sufficient in the setting of symptoms to suggest that she would benefit from transfusion. She has consented to transfusion. Therefore, 1 unit of packed red cells will be given. Because of the rise in her creatinine overnight, we will temporarily stop her intravenous (IV) Lasix pending an opinion from nephrology regarding the prudence of continuing diuresis in the face rising creatinine. We reviewed again the possibility of renal artery stenting and she again declines based on her current understanding of the process. Overall today, she seems to be symptomatically. PLAN: Will discontinue diuretics at this point. Transfuse 1 unit packed red blood cells. Monitor for any worsening of dyspnea. Consideration for restart diuresis if this develops.
--- NOTE | 2019-01-31 14:34 | IPN ---
DATE: 01/30/2019 SUBJECTIVE: Patient today feels somewhat better than his admission. She denies chest pain. She denies abdominal pain. Has not noticed any blood loss, fevers, chills or sweats. She denies headache and at this time her dyspnea has improved after a modest diuresis overnight. OBJECTIVE: Blood pressure 150/70, pulse is 76, respiratory rate is 20, oxygen saturation 96% on 2 liters. LABORATORY DATA: Show elevated white count at 18,200 on initial presentation and MCV of 104.3. She had a platelet count of 388,000. She is on chronic treatment with hydroxyurea for essential thrombocytosis and it looks like she has excellent control of the platelet counts with only 500 mg daily. Creatinine on admission was 2.84, BUN 58, potassium 4.7. BNP 8330. Since admission she has mounted a modest diuresis with output of 320 relative balance, with a total output of 1400. Weight is 63.7 kg on admission. Auscultation of the chest shows faint bibasilar rales. Diminished air flow. No murmurs noted. Abdomen is soft without tenderness, guarding or mass effect. She does have known right atretic kidney with left renal stenosis for which she declined intervention opportunity at her last hospital stay. Chest x-ray shows a pattern more consistent with chronic fibrotic disease rather than acute failure, but these could be easily confused. ASSESSMENT: 1. Hypertension, poorly controlled. 2. Renovascular hypertension with likely flash pulmonary edema. 3. Chronic renal failure stage III, going to IV. 4. Anemia, multifactorial. 5. Essential thrombocytosis. PLAN: Continue hydroxyurea. We will continue with nephrology consultation, who, at this time, have approved continuation of diuretic therapy, which will be with 80 mg intravenous (IV) Lasix every 8 hours overnight since she has experienced some improvement with initial treatment. We will try to improve her blood pressure control. She is on several agents for this. We will add long-acting nitrate. She had nitroglycerin paste initially, which seemed to be useful; therefore, will start isosorbide mononitrate today, approximately at noon, continue it each morning. Monitor hemoglobin, because she has a history of gastrointestinal (GI) blood loss, chronic renal disease and the possible side effects of her hydroxyurea.
[2019-01-31 14:47] LABS: HEMATOCRIT 26.5 % (36.0-47.0); HEMOGLOBIN 8.6 g/dl (12.0-15.5); MEAN CORPUSCULAR HEMOGLOBIN 32.2 pg (27.0-33.0); MEAN CORPUSCULAR HGB CONC 32.5 g/dl (32.0-36.5); MEAN CORPUSCULAR VOLUME 99.3 fl (80.0-96.0); PLATELET COUNT, AUTOMATED 315 10^3/uL (150-450); RED BLOOD COUNT 2.67 10^6/uL (4.00-5.40); WHITE BLOOD COUNT 7.7 10^3/uL (4.0-10.0)
--- NOTE | 2019-01-31 16:27 | IPN ---
DATE: 01/31/2019 SUBJECTIVE: Patient was seen and examined at the bedside today morning. Labs were reviewed. Her renal function continues to deteriorate. Creatinine has bumped up from 2.8 to 3.4 today. Her intravenous (IV) diuretics have been stopped by the primary team. Blood pressure is significantly better and shortness of breath is also improving. She continues to have indwelling Valles catheter. OBJECTIVE: VITAL SIGNS: Temperature is 97.8 degrees Fahrenheit, blood pressure 148/65, pulse is 68, respiratory rate of 20, saturating 96% on nasal cannula at 2 liters. INTAKE AND OUTPUT: Urine output recorded is 1400 mL yesterday, 700 mL so far today since overnight. Weight in the bed scale is 62.5 kg. PHYSICAL EXAMINATION: GENERAL: Patient is awake, alert, oriented times three, laying in bed wearing nasal cannula. No apparent distress. HEAD AND NECK EXAM: Extraocular muscles intact. Pupils equally round and reactive to light. Mucous membranes are moist. Neck is supple. There is mild elevation of jugular venous distention (JVD). CARDIOVASCULAR: S1, S2. Regular rate and trace edema of the bilateral lower extremities. RESPIRATORY: Mildly decreased breath sounds at the bases with mild respiratory crackles at the bases on deep inspiration. ABDOMEN: Soft. Positive bowel sounds. Nontender. No organomegaly. MUSCULOSKELETAL: No clubbing or cyanosis. Pulses are 2+. CENTRAL NERVOUS SYSTEM (HEALTH ADMINISTRATION TEACHER): No focal deficit. Power is 5/5 in all extremities. No asterixis was noted. LABORATORY REVIEW: Complete blood count (CBC) showed a WBC of 9.5, hemoglobin is 7.7, platelets are 343. Basic metabolic panel (BMP) showed sodium 138, potassium 3.6, chloride 104, bicarbonate 22, BUN 69, creatinine 3.4, it was 2.8 yesterday, calcium is 8.2. Iron level is 17, total iron binding capacity (TIBC) is 90, transferrin saturation is 18.9% CURRENT INPATIENT MEDICATIONS: Patient's medications were all reviewed by me. She will get a dose of her Venofer 200 mg IV times one dose tomorrow morning. She is also scheduled to get 1 units of packed red blood cells transfusion today. IV Lasix has been. I have started her on Lasix 40 mg by mouth daily starting to tomorrow morning. No other change in the medications today as compared with yesterday. ASSESSMENT AND PLAN: 1. Acute kidney injury superimposed on chronic renal disease stage IV. Patient has atrophic right kidney and solitary functioning left kidney with stenosis of the renal artery. She has refused the renal artery stenting. She is aggressively being diuresed because of hypertension and pulmonary edema. Lasix IV has been stopped and diuretic is being changed to oral diuretic. Although her GFR has dropped, patient is refusing dialysis, so she is being medically managed at this time. 2. Acute decompensated diastolic congestive heart failure. Volume status is improving. IV Lasix is being held because of drop in the GFR. Lasix has been changed to 40 mg by mouth daily starting tomorrow morning. 3. Renovascular hypertension. Blood pressures was significantly better. Continue current dose of amlodipine 10 mg daily, hydralazine 100 mg four times a day and Coreg 37.5 mg by mouth twice a day along with isosorbide. 4. Iron-deficiency anemia. Patient is going to get 1 unit of packed red blood cells transfusion today. I have also ordered a dose of IV Venofer 200 mg to be given to tomorrow morning.
[2019-01-31] MEDS: DOXAZOSIN MESYLATE 4 MG TAB PO SCH (20:50)
[2019-02-01] VITALS (25 sets, daily range): BP systolic 141–170; BP diastolic 60–70; O2SAT 91–98
[2019-02-01 05:36] LABS: HEMATOCRIT 26.1 % (36.0-47.0); HEMOGLOBIN 8.4 g/dl (12.0-15.5); MEAN CORPUSCULAR HEMOGLOBIN 31.9 pg (27.0-33.0); MEAN CORPUSCULAR HGB CONC 32.2 g/dl (32.0-36.5); MEAN CORPUSCULAR VOLUME 99.2 fl (80.0-96.0); PLATELET COUNT, AUTOMATED 350 10^3/uL (150-450); RED BLOOD COUNT 2.63 10^6/uL (4.00-5.40); WHITE BLOOD COUNT 8.3 10^3/uL (4.0-10.0)
[2019-02-01 05:55] LABS: CALCIUM LEVEL 7.9 MG/DL (8.8-10.2); CREATININE FOR GFR 3.49 MG/DL (0.55-1.30); GLOMERULAR FILTRATION RATE 13.3 (>32); POTASSIUM SERUM 3.6 MEQ/L (3.5-5.1)
[2019-02-01] MEDS ORDERED: IRON SUCROSE 200 MG in NS 100 ML IV ONE (08:00)
[2019-02-01] MEDS: OCUVITE 1 TAB PO SCH ×2 (08:54→21:01)
[2019-02-01] MEDS: CARVedilol 12.5 MG TAB PO SCH ×2 (08:54→21:01)
[2019-02-01] MEDS: HYDROXYUREA 500 MG CAP PO SCH (08:54)
[2019-02-01] MEDS: FUROSEMIDE 40 MG TAB PO SCH (08:55)
[2019-02-01] MEDS: **hydrALAZINE** 50 MG TAB PO SCH ×4 (08:55→21:02)
[2019-02-01] MEDS: amLODIPine 10 MG TAB PO SCH (08:55)
[2019-02-01] MEDS: MULTIVITAMINS/MINERALS THERAP 1 TAB PO SCH (08:56)
[2019-02-01] MEDS: ALLOPURINOL 100 MG TAB PO SCH ×2 (08:56→21:02)
[2019-02-01] MEDS: ISOSORBIDE MON. (IMDUR) 60 MG XR TAB PO SCH (08:56)
[2019-02-01] MEDS: POTASSIUM CHLORIDE 10 MEQ SR TABLET PO SCH ×2 (08:56→21:01)
--- NOTE | 2019-02-01 09:20 | IPNPDOC ---
Subjective Date Seen The patient was seen on 02/01/19. Subjective Chief Complaint/HPI Pt this morning without new concerns. She states that she is only SOB when eating. Otherwise feels close to her baseline. General: Denies: Fatigue Constitutional: Denies: Chills, Fever ENT: Denies: Head Aches Pulmonary: Reports: Dyspnea; Denies: Cough Cardiovascular: Denies: Chest Pain, Palpitations Gastrointestinal: Denies: Nausea, Vomiting, Diarrhea Neurological: Denies: Weakness Psych: Reports: Mood Normal Objective Physical Examination General Exam: Positive: Alert, No Acute Distress ENT Exam: Positive: Mucous membr. moist/pink Chest Exam: Positive: Rales (At B bases); Negative: Diminished Heart Exam: Positive: Rate Normal Abdomen Exam: Positive: Normal bowel sounds, Soft Extremity Exam: Negative: Edema Neuro Exam: Positive: Normal Speech Psych Exam: Positive: Mental status NL, Mood NL Assessment /Plan Problems (1) Urinary retention Status: Acute Problem Text: new onset c 01/30/19 admission remains on HD doxa 4 01/30 -UA 02/01 TOV (2) Renal artery stenosis Permanent Comment: NOT candidate to stent L renal artery of 1 functional kidney given refusal for possible HD afterwards (per IR and Nephro) Last Edited By: Ashish Bustillo MD on Feb 01, 2019 17:17 Status: Chronic Problem Text: NOT candidate to stent L renal artery of 1 functional kidney given refusal for possible HD afterwards (per IR and Nephro) (3) Diastolic CHF, acute on chronic Permanent Comment: ECHO 2014: Moderate aortic stenosis. Moderate LVH. Grade 2 diastolic dysfunction. EF: 60-75% Last Edited By: Soheila Freed NP on Jun 302015 09:54 Status: Acute Response to Treatment: Stable, Improving Discussed With: Nurse, Patient Problem Specific Plan: Monitor Clinically, Repeat Labs Problem Text: Pt now on PO Lasix 40 mg daily, monitor fluid status. VIVIANA diet. 01/30 BNP 8330 (on admission c symptomatic CHF) (4) CKD (chronic kidney disease) stage 4, GFR 15-29 ml/min Status: Chronic Response to Treatment: Stable Discussed With: Nurse, Patient Problem Specific Plan: Consult Specialist, Monitor Clinically, Repeat Labs Problem Text: patient and HCP continue to refuse HD consideration tc PRODUCTION LINE (5) Anemia of renal disease Status: Chronic Response to Treatment: Stable Problem Specific Plan: Monitor Clinically Problem Text: stable hgb mid 8s sp IV Fe and 3u PRBCs (6) HTN (hypertension) Permanent Comment: HD dox 4, amlo 10, hydral 10 QID, carve 37.5 BID, ISMN 60 Last Edited By: Ashish Bustillo MD on Feb 01, 2019 16:31 Status: Chronic Problem Text: fair control on HD dox 4, amlo 10, hydral 10 QID, carve 37.5 BID, ISMN 60 (7) Physical deconditioning Status: Chronic Problem Text: 02/01 NS for DC per PT-plan for home Plan/VTE VTE Prophylaxis Ordered?: Yes VS, I&O, 24H, Fishbone Vital Signs/I&O Vital Signs Date Time Temp Pulse Resp B/P (MAP) Pulse Ox O2 Delivery O2 Flow Rate FiO2 02/01/19 09:05 99.2 74 18 162/60 (94) 94 Nasal Cannula 2.0 I&O- Last 24 Hours up to 6 AM 02/01/19 05:59 Intake Total 1670 ml Output Total 1850 ml Balance -180 ml Laboratory Data 24H LABS Laboratory Tests 2 01/31/19 14:39: Nucleated Red Blood Cells % (auto) 0.0 02/01/19 05:15: Nucleated Red Blood Cells % (auto) 0.0, Anion Gap 9, Glomerular Filtration Rate 13.3L, Calcium Level 7.9L CBC/BMP Laboratory Tests 01/31/19 14:39 02/01/19 05:15 Microbiology Microbiology 01/30/19 Blood Culture - Preliminary, Resulted No Growth after 48 hours. All Specime... 01/30/19 Blood Culture - Preliminary, Resulted No Growth after 48 hours. All Specime... 01/30/19 Respiratory Virus Panel (PCR) ([facility]) - Final, Complete YEN MORENO PA-C Feb 01, 2019 09:20 Ashish Bustillo M.D. Feb 01, 2019 16:34
--- NOTE | 2019-02-01 12:22 | IPN ---
DATE: 02/01/2019 The patient is seen this morning at bedside and states that she has been breathing okay. She continues to refuse dialysis and refuses stent placement and we discussed with her that her kidney function was currently in the range where it would be appropriate to start dialysis therapy. She continues to state, as she has for the past 3 days, that she does not want dialysis at this moment. OBJECTIVE: VITAL SIGNS: Temperature 98.8, pulse 69, respiratory rate 18, blood pressure 150/65, saturating 92% on 2 liters nasal cannula. Output is 1450 mL in the last 24 hours. GENERAL: The patient is alert and oriented times three laying in bed in no acute distress. HEENT: Extraocular muscles intact, pupils equal, round, and reactive. Mucous membranes are moist. NECK: Supple. Mild jugular venous distention (JVD). CARDIOVASCULAR: Regular rate and rhythm. Normal S1, S2. Trace edema bilateral lower extremities. RESPIRATORY: Decreased breath sounds at lung bases with mild crackles on deep inspiration. ABDOMEN: Soft, positive bowel sounds. Nontender. Nondistended. No bruit heard on auscultation. NEUROLOGIC: No focal neural deficits. LAB REVIEW: White blood cell count of 8.3, hemoglobin 8.4, hematocrit 26.1, platelet count 350. Chemistry: Sodium 137, potassium 3.6, chloride 104, CO2 24, BUN 70, creatinine 3.49, glucose 96, calcium 7.9. ASSESSMENT/PLAN: 1. Acute kidney injury superimposed on chronic kidney disease (CKD) stage IV: Patient has an atrophic right kidney and solitary functioning left kidney with stenosis of left renal artery currently refusing renal artery stenting. She was aggressively diuresed because of her hypertension and pulmonary edema, however, her IV Lasix needed to be stopped and she was transitioned to oral diuretic yesterday. Patient continues to refuse dialysis daily so she continues to be medically managed at this time. We did discuss with her that, while this is not life-threatening at the moment, this could change at any time and increase her risk of . 2. Acute decompensated diastolic congestive heart failure: Volume status continues to improved mildly. We have held IV Lasix due to the perfuse drop in her GFR yesterday and will continue her on Lasix 40 mg by mouth. 3. Renovascular hypertension: Blood pressures are stable. We will continue her on chronic dose of amlodipine 10 mg daily, hydralazine 100 mg four times a day and Coreg 37.5 mg by mouth twice a day along with isosorbide. 4. Iron deficiency anemia: Patient received 1 unit of packed red blood cells (PRBC) yesterday and was receiving IV Venofer 200 mg this morning while we were seeing her at bedside.
[2019-02-01] MEDS: DOXAZOSIN MESYLATE 4 MG TAB PO SCH (21:01)
[2019-02-02] VITALS (9 sets, daily range): BP systolic 144–166; BP diastolic 65–72; O2SAT 92–96
[2019-02-02 06:15] LABS: HEMATOCRIT 24.7 % (36.0-47.0); HEMOGLOBIN 8.3 g/dl (12.0-15.5); MEAN CORPUSCULAR HEMOGLOBIN 32.8 pg (27.0-33.0); MEAN CORPUSCULAR HGB CONC 33.6 g/dl (32.0-36.5); MEAN CORPUSCULAR VOLUME 97.6 fl (80.0-96.0); PLATELET COUNT, AUTOMATED 363 10^3/uL (150-450); RED BLOOD COUNT 2.53 10^6/uL (4.00-5.40); WHITE BLOOD COUNT 8.3 10^3/uL (4.0-10.0)
[2019-02-02 06:39] LABS: CALCIUM LEVEL 8.1 MG/DL (8.8-10.2); CREATININE FOR GFR 3.55 MG/DL (0.55-1.30); POTASSIUM SERUM 3.8 MEQ/L (3.5-5.1)
--- NOTE | 2019-02-02 08:49 | IPNPDOC ---
Subjective Date Seen The patient was seen on 02/02/19. Subjective Chief Complaint/HPI Pt this morning states that her breathing feels better. She denies cough, she ate breakfast without difficulty. She has no new concerns. General: Denies: Fatigue Constitutional: Denies: Chills, Fever Pulmonary: Denies: Dyspnea, Cough Cardiovascular: Denies: Chest Pain, Palpitations Gastrointestinal: Denies: Nausea, Vomiting, Abdominal Pain Neurological: Reports: Weakness Psych: Reports: Mood Normal Objective Physical Examination General Exam: Positive: Alert, No Acute Distress ENT Exam: Positive: Mucous membr. moist/pink Chest Exam: Positive: Rales (At B bases); Negative: Diminished Heart Exam: Positive: Rate Normal Abdomen Exam: Positive: Normal bowel sounds, Soft Extremity Exam: Negative: Edema Neuro Exam: Positive: Normal Speech Psych Exam: Positive: Mental status NL, Mood NL Assessment /Plan Problems (1) Diastolic CHF, acute on chronic Permanent Comment: ECHO 2014: Moderate aortic stenosis. Moderate LVH. Grade 2 diastolic dysfunction. EF: 60-75% Last Edited By: Soheila Freed NP on Jul 22, 2015 09:54 Status: Acute Response to Treatment: Stable, Improving Discussed With: Nurse, Patient Problem Specific Plan: Monitor Clinically, Repeat Labs Problem Text: 02/02 26502 c + 600 over last 2D; fur 40 QD to BID 01/30 BNP 8330 (on admission c symptomatic CHF) 01/30 BCX2 NG (2) Renal artery stenosis Permanent Comment: NOT candidate to stent L renal artery of 1 functional kidney given refusal for possible HD afterwards (per IR and Nephro) Last Edited By: Ashish Bustillo MD on Feb 01, 2019 17:17 Status: Chronic Problem Text: NOT candidate to stent L renal artery of 1 functional kidney given refusal for possible HD afterwards (per IR and Nephro) (3) Urinary retention Status: Acute Problem Text: new onset c 01/30/19 admission remains on HD doxa 4 01/30 -UA 02/01 TOV (4) CKD (chronic kidney disease) stage 4, GFR 15-29 ml/min Status: Chronic Response to Treatment: Stable Discussed With: Nurse, Patient Problem Specific Plan: Consult Specialist, Monitor Clinically, Repeat Labs Problem Text: patient and HCP continue to refuse HD consideration tc 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 (5) Anemia of renal disease Status: Chronic Response to Treatment: Stable Problem Specific Plan: Monitor Clinically Problem Text: stable hgb mid 8s sp IV Fe and 3u PRBCs (6) HTN (hypertension) Permanent Comment: HD dox 4, amlo 10, hydral 10 QID, carve 37.5 BID, ISMN 60 Last Edited By: Ashish Bustillo MD on Feb 01, 2019 16:31 Status: Chronic Problem Text: fair control on HD dox 4, amlo 10, hydral 10 QID, carve 37.5 BID, ISMN 60 (7) Physical deconditioning Status: Chronic Problem Text: 02/01 NS for DC per PT-plan for home Plan/VTE VTE Prophylaxis Ordered?: Yes VS, I&O, 24H, Fishbone Vital Signs/I&O Vital Signs Date Time Temp Pulse Resp B/P (MAP) Pulse Ox O2 Delivery O2 Flow Rate FiO2 02/02/19 08:14 98.2 67 22 158/67 (97) 93 Nasal Cannula 2.0 I&O- Last 24 Hours up to 6 AM 02/02/19 05:59 Intake Total 1500 ml Output Total 1050 ml Balance 450 ml Laboratory Data 24H LABS Laboratory Tests 2 02/02/19 05:52: Nucleated Red Blood Cells % (auto) 0.0, Anion Gap 10, Glomerular Filtration Rate 13.0L, Calcium Level 8.1L, [id number] Natriuretic Peptide [id number] CBC/BMP Laboratory Tests 02/02/19 05:52 Microbiology Microbiology 01/30/19 Blood Culture - Preliminary, Resulted No Growth after 72 hours. All specime... 01/30/19 Blood Culture - Preliminary, Resulted No Growth after 72 hours. All specime... 01/30/19 Respiratory Virus Panel (PCR) ([facility]) - Final, Complete YNE MORENO PA-C Feb 02, 2019 08:49 Ashish Bustillo M.D. Feb 02, 2019 17:11
[2019-02-02] MEDS ORDERED: MOM 30ML SUSPENSION UDC PO PRN (09:15)
[2019-02-02] MEDS ORDERED: SENNA 8.6 MG TAB (SENOKOT) PO PRN (09:15)
[2019-02-02] MEDS: HYDROXYUREA 500 MG CAP PO SCH (09:20)
[2019-02-02] MEDS: **hydrALAZINE** 50 MG TAB PO SCH ×4 (09:20→20:59)
[2019-02-02] MEDS: OCUVITE 1 TAB PO SCH ×2 (09:20→21:00)
[2019-02-02] MEDS: ISOSORBIDE MON. (IMDUR) 60 MG XR TAB PO SCH (09:20)
[2019-02-02] MEDS: CARVedilol 12.5 MG TAB PO SCH ×2 (09:20→20:58)
[2019-02-02] MEDS: MULTIVITAMINS/MINERALS THERAP 1 TAB PO SCH (09:21)
[2019-02-02] MEDS: ALLOPURINOL 100 MG TAB PO SCH ×2 (09:21→21:00)
[2019-02-02] MEDS: FUROSEMIDE 40 MG TAB PO SCH ×2 (09:21→17:58)
[2019-02-02] MEDS: amLODIPine 10 MG TAB PO SCH (09:21)
[2019-02-02] MEDS: POTASSIUM CHLORIDE 10 MEQ SR TABLET PO SCH ×2 (09:21→21:00)
[2019-02-02] MEDS: DARBEPOETIN 100 MCG/0.5 ML *NON-DIALYSIS* SYRINGE (J0881) SC SCH (12:20)
[2019-02-02] MEDS: DOCUSATE SODIUM 100 MG CAP PO PRN (12:28)
--- NOTE | 2019-02-02 13:19 | IPN ---
DATE OF VISIT: 02/02/2019 SUBJECTIVE: Patient was seen and examined at the bedside today morning. The patient is afebrile, hemodynamically stable. Her blood pressures are better controlled. There is no significant improvement in the renal function. Creatinine has been fluctuating at around 3.4 to 3.5. The patient does not have any symptoms of uremia at this time. She is refusing dialysis. She continues to be on oral diuretics. OBJECTIVE: VITAL SIGNS: Temperature is 98.2 degrees Fahrenheit, blood pressure 158/67, pulse is 67, respiratory rate of 22, saturating 93% on nasal cannula at 2 liters. INTAKE AND OUTPUT: Urine output recorded as 1.1 liters yesterday, 325 mL so far today since overnight. Weight on the bed scale is 49.9 kg. PHYSICAL EXAMINATION: GENERAL: Patient is awake, alert, oriented times three, laying in bed. No apparent distress. HEAD AND NECK EXAM: Extraocular muscles intact. Pupils equally round and reactive to light. Mucous membranes are moist. Neck is supple. He has mildly elevated jugular venous distention (JVD). CARDIOVASCULAR: S1, S2 regular rate. There is no edema of the bilateral lower extremities. RESPIRATORY: Mildly decreased breath sounds at the bases with mild inspiratory crackles at the bases. ABDOMEN: Soft. Positive bowel sounds. Nontender. No organomegaly. MUSCULOSKELETAL: No clubbing or cyanosis. Pulses are 2+. CENTRAL NERVOUS SYSTEM (SENIOR SCIENCE CONSULTANT): No focal deficit. Power is 5/5 in all extremities. LABORATORY REVIEW: CBC showed a WBC of 8.3, hemoglobin is 8.3, platelets are 363. BMP showed sodium 134, potassium 3.8, chloride 101, bicarbonate 23, BUN 80, creatinine 3.5, it was 3.4 yesterday, calcium is 8.1. BNP is 13,654. CURRENT INPATIENT MEDICATIONS: Patient's medications were all reviewed by myself. She continues to be on furosemide 40 mg by mouth daily and Lasix 20 mg by mouth twice a day. No other change in the medications today as compared with yesterday. ASSESSMENT AND PLAN: 1. Acute kidney injury superimposed on chronic kidney disease stage IV. Patient has solitary functioning left kidney with atrophic right kidney and severe left renal artery stenosis. No significant improvement in the renal function. She is refusing hemodialysis. Continue medical optimization only. 2. Renovascular hypertension. Blood pressures is better controlled with current combination of amlodipine 10 mg daily, hydralazine 100 mg four times a day and Coreg 37.5 mg by mouth twice a day, and isosorbide 60 mg by mouth daily. 3. Acute decompensated diastolic congestive heart failure. It is secondary to severe left sided renal artery stenosis and renal failure. I am going to increase the Lasix dose to 40 mg by mouth twice a day because of persistently elevated BNP levels. 4. Iron-deficiency anemia. Patient is getting IV Venofer. I have also started the patient on Aranesp 100 mcg subcu once a week because of advanced chronic kidney disease. DISPOSITION: Patient is refusing dialysis. She is refusing left renal artery stenting. She is a DO NOT RESUSCITATE, DO NOT INTUBATE. I discussed the possibility of palliative care and hospice with her and she thinks that she does not need it at this time. Once the patient is optimized, she can be discharged home and she can followup with nephrology as an outpatient.
[2019-02-02] MEDS: ONDANSETRON 4 MG TAB (S0181) PO PRN (18:10)
[2019-02-02] MEDS: DOXAZOSIN MESYLATE 4 MG TAB PO SCH (20:59)
[2019-02-03 04:00] VITALS: BP 137/66
[2019-02-03 05:49] LABS: HEMATOCRIT 25.1 % (36.0-47.0); HEMOGLOBIN 8.2 g/dl (12.0-15.5); MEAN CORPUSCULAR HEMOGLOBIN 32.9 pg (27.0-33.0); MEAN CORPUSCULAR HGB CONC 32.7 g/dl (32.0-36.5); MEAN CORPUSCULAR VOLUME 100.8 fl (80.0-96.0); PLATELET COUNT, AUTOMATED 362 10^3/uL (150-450); RED BLOOD COUNT 2.49 10^6/uL (4.00-5.40); WHITE BLOOD COUNT 8.5 10^3/uL (4.0-10.0)
[2019-02-03 06:12] LABS: CREATININE FOR GFR 3.63 MG/DL (0.55-1.30); GLOMERULAR FILTRATION RATE 12.7 (>32); POTASSIUM SERUM 4.3 MEQ/L (3.5-5.1)
[2019-02-03 08:00] VITALS: BP 128/60
[2019-02-03] MEDS: FUROSEMIDE 40 MG TAB PO SCH ×2 (09:07→16:50)
[2019-02-03] MEDS: ISOSORBIDE MON. (IMDUR) 60 MG XR TAB PO SCH (09:08)
[2019-02-03] MEDS: POTASSIUM CHLORIDE 10 MEQ SR TABLET PO SCH ×2 (09:08→20:32)
[2019-02-03] MEDS: ALLOPURINOL 100 MG TAB PO SCH ×2 (09:08→20:31)
[2019-02-03] MEDS: MULTIVITAMINS/MINERALS THERAP 1 TAB PO SCH (09:08)
[2019-02-03] MEDS: amLODIPine 10 MG TAB PO SCH (09:08)
[2019-02-03] MEDS: **hydrALAZINE** 50 MG TAB PO SCH ×4 (09:09→20:32)
[2019-02-03] MEDS: CARVedilol 12.5 MG TAB PO SCH ×2 (09:09→20:31)
[2019-02-03] MEDS: OCUVITE 1 TAB PO SCH ×2 (09:10→20:32)
[2019-02-03] MEDS: HYDROXYUREA 500 MG CAP PO SCH (09:10)
[2019-02-03] MEDS ORDERED: FUROSEMIDE 100 MG/10 ML VIAL (J1940) IV ONE (09:30)
--- NOTE | 2019-02-03 12:31 | IPN ---
DATE: 02/03/2019 Patient was seen this morning in her room at bedside. States that she did not sleep well as she felt stuffed up. She otherwise, endorses no complaints at this time. Her blood pressure still remains stable. Her renal function continues to be about the same and has gone up from 3.55 to 3.63 overnight with a repeat BNP done yesterday of 13,000, which is worse than her admitting BMP. She continues to decline dialysis and wants only medical management at this time. OBJECTIVE: VITAL SIGNS: Temperature 98, pulse 70, respiratory rate 18, blood pressure 120/68, pulse ox 94% on room air. 425 mL out over the last 24 hours. GENERAL: Patient is awake, alert, oriented times three laying in bed in no acute distress. HEENT: Extraocular muscles intact. Pupils equal, round and reactive to light. Mucous membranes moist. NECK: Supple. She has moderately elevated jugular venous distention (JVD). CARDIOVASCULAR: Regular rate and rhythm. Normal S1, S2. No edema of bilateral lower extremities. RESPIRATORY: Mild decreased breath sounds at bases with mild inspiratory crackles. ABDOMEN: Soft, nontender, nondistended. Positive bowel sounds. NEUROLOGIC: No focal neurologic deficits. LABORATORY REVIEW: White blood cell count 8.5, hemoglobin 8.2, hematocrit 25.1, platelets 362. Sodium 130, potassium 4.3, chloride 98, CO2 23, BUN 86, creatinine 3.63, glucose 102, calcium 8.0, BNP from 02/02/2019 is 13,654. INPATIENT MEDICATIONS: We are increasing her oral diuretics to 40 mg by mouth twice a day and also will give her a one-time IV dose of Lasix 60 mg to see how she responds to that. She is continued on Aranesp . ASSESSMENT/PLAN: 1. Acute kidney injury superimposed on chronic kidney disease (CKD) stage IV. Patient has solitary functioning of the left kidney with atrophic right kidney and severe left renal artery stenosis. She continues to experience no significant improvement in renal function and is refusing hemodialysis. We will attempt to medically optimize only. 2. Renovascular hypertension: Blood pressures have been well-controlled with current combination of amlodipine 10 mg, hydralazine 100 mg four times a day, Coreg 37.5 mg twice a day and Isosorbide 60 mg by mouth daily. 3. Acute decompensated diastolic congestive heart failure. It is likely secondary to left-sided renal artery stenosis and renal failure. We are giving a one-time dose of Lasix to see if she responds well to that and if she does, we may consider increasing or oral dose of Lasix. 4. Iron deficiency anemia: Patient is status post Venofer. She has been started on Aranesp 100 mcg subcutaneous once a week because of her advanced chronic kidney disease. DISPOSITION: Patient continues to refuse dialysis and left renal artery stenting. She is a DO NOT RESUSCITATE, DO NOT INTUBATE. The topic of the possibility of palliative care and hospice was discussed with her yesterday and she is not interested in that at this time either. Once the patient is medically optimized, she can be discharged home and can followup with the nephrology office outpatient.
--- NOTE | 2019-02-03 12:54 | IPNPDOC ---
Subjective Date Seen The patient was seen on 02/03/19. Subjective Chief Complaint/HPI Still c/o some BALL - improved and able to ambulate to BR but still weak Constitutional: Denies: Chills, Fever Pulmonary: Reports: Dyspnea; Denies: Cough Cardiovascular: Denies: Chest Pain, Palpitations Gastrointestinal: Denies: Nausea, Vomiting, Abdominal Pain, Diarrhea, Constipation Objective Physical Examination General Exam: Positive: Alert, No Acute Distress ENT Exam: Positive: Mucous membr. moist/pink Chest Exam: Positive: Rales (At B bases); Negative: Diminished Heart Exam: Positive: Rate Normal Abdomen Exam: Positive: Normal bowel sounds, Soft Extremity Exam: Negative: Edema Neuro Exam: Positive: Normal Speech Psych Exam: Positive: Mental status NL, Mood NL Assessment /Plan Problems (1) Diastolic CHF, acute on chronic Permanent Comment: ECHO 2013: Moderate aortic stenosis. Moderate LVH. Grade 2 diastolic dysfunction. EF: 60-75% Last Edited By: Soheila Freed NP on Jul 22, 2015 09:54 Status: Acute Response to Treatment: Stable, Improving Discussed With: Nurse, Patient Problem Specific Plan: Monitor Clinically, Repeat Labs Problem Text: 02/03 - renal function worsening over the past few days with improved but persistent BALL and transient hypoxemia with sats 88% overnight early this am, hyponatremia today and positive I & O since switching to oral Lasix. Nephrology ordering single dose of IV Lasix today and monitor Cont Lasix 40 BID 02/02 14779 c + 600 over last 2D; fur 40 QD to BID 01/30 BNP 8330 (on admission c symptomatic CHF) 01/30 BCX2 NG (2) Renal artery stenosis Permanent Comment: NOT candidate to stent L renal artery of 1 functional kidney given refusal for possible HD afterwards (per IR and Nephro) Last Edited By: Ashish Bustillo MD on Feb 01, 2019 17:17 Status: Chronic Problem Text: NOT candidate to stent L renal artery of 1 functional kidney given refusal for possible HD afterwards (per IR and Nephro) (3) Urinary retention Status: Acute Problem Text: new onset c 01/30/19 admission remains on HD doxa 4 01/30 -UA 02/01 TOV (4) CKD (chronic kidney disease) stage 4, GFR 15-29 ml/min Status: Chronic Response to Treatment: Stable Discussed With: Nurse, Patient Problem Specific Plan: Consult Specialist, Monitor Clinically, Repeat Labs Problem Text: patient and HCP continue to refuse HD consideration 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 (5) Anemia of renal disease Status: Chronic Response to Treatment: Stable Problem Specific Plan: Monitor Clinically Problem Text: stable hgb mid 8s sp IV Fe and 3u PRBCs (6) HTN (hypertension) Permanent Comment: HD dox 4, amlo 10, hydral 10 QID, carve 37.5 BID, ISMN 60 Last Edited By: Ashish Bustillo MD on Feb 01, 2019 16:31 Status: Chronic Problem Text: fair control on HD dox 4, amlo 10, hydral 10 QID, carve 37.5 BID, ISMN 60 (7) Physical deconditioning Status: Chronic Problem Text: 02/01 NS for DC per PT-plan for home Plan/VTE VTE Prophylaxis Ordered?: Yes Disposition Not safe for D/C yet per PT today VS, I&O, 24H, Fishbone Vital Signs/I&O Vital Signs Date Time Temp Pulse Resp B/P (MAP) Pulse Ox O2 Delivery O2 Flow Rate FiO2 02/03/19 09:09 128/60 02/03/19 09:09 70 02/03/19 08:00 2.0 02/03/19 08:00 98.0 18 94 Room Air I&O- Last 24 Hours up to 6 AM 02/03/19 06:00 Intake Total 850 ml Output Total 625 ml Balance 225 ml Laboratory Data 24H LABS Laboratory Tests 2 02/03/19 05:30: Nucleated Red Blood Cells % (auto) 0.0, Anion Gap 9, Glomerular Filtration Rate 12.7L, Calcium Level 8.0L CBC/BMP Laboratory Tests 02/03/19 05:30 Microbiology Microbiology 01/30/19 Blood Culture - Preliminary, Resulted No Growth after 72 hours. All specime... 01/30/19 Blood Culture - Preliminary, Resulted No Growth after 72 hours. All specime... 01/30/19 Respiratory Virus Panel (PCR) ([facility]) - Final, Complete KELSEY SNELL PA-C Feb 03, 2019 12:54
[2019-02-03 16:00] VITALS: BP 143/65
[2019-02-03 18:30] VITALS: BP 153/68
[2019-02-03 21:00] VITALS: O2SAT 92
[2019-02-03 22:00] VITALS: BP 138/68
[2019-02-03] MEDS: DOXAZOSIN MESYLATE 4 MG TAB PO SCH (22:14)
[2019-02-04] VITALS (13 sets, daily range): BP systolic 134–156; BP diastolic 56–72; O2SAT 95
[2019-02-04 06:01] LABS: HEMATOCRIT 23.7 % (36.0-47.0); HEMOGLOBIN 7.8 g/dl (12.0-15.5); MEAN CORPUSCULAR HEMOGLOBIN 32.5 pg (27.0-33.0); MEAN CORPUSCULAR HGB CONC 32.9 g/dl (32.0-36.5); MEAN CORPUSCULAR VOLUME 98.8 fl (80.0-96.0); PLATELET COUNT, AUTOMATED 388 10^3/uL (150-450); WHITE BLOOD COUNT 7.8 10^3/uL (4.0-10.0)
[2019-02-04 06:27] LABS: CREATININE FOR GFR 3.87 MG/DL (0.55-1.30)
[2019-02-04 06:28] LABS: CALCIUM LEVEL 7.8 MG/DL (8.8-10.2); GLOMERULAR FILTRATION RATE 11.8 (>32)
[2019-02-04] MEDS: MULTIVITAMINS/MINERALS THERAP 1 TAB PO SCH (09:51)
[2019-02-04] MEDS: ALLOPURINOL 100 MG TAB PO SCH ×2 (09:51→21:14)
[2019-02-04] MEDS: POTASSIUM CHLORIDE 10 MEQ SR TABLET PO SCH ×2 (09:51→21:15)
[2019-02-04] MEDS: amLODIPine 10 MG TAB PO SCH (09:51)
[2019-02-04] MEDS: ISOSORBIDE MON. (IMDUR) 60 MG XR TAB PO SCH (09:52)
[2019-02-04] MEDS: **hydrALAZINE** 50 MG TAB PO SCH ×4 (09:52→21:15)
[2019-02-04] MEDS: HYDROXYUREA 500 MG CAP PO SCH (09:52)
[2019-02-04] MEDS: OCUVITE 1 TAB PO SCH ×2 (09:52→21:14)
[2019-02-04] MEDS: FUROSEMIDE 40 MG TAB PO SCH ×2 (09:52→17:46)
[2019-02-04] MEDS: CARVedilol 12.5 MG TAB PO SCH ×2 (09:53→21:15)
--- NOTE | 2019-02-04 11:05 | IPNPDOC ---
Subjective Date Seen The patient was seen on 02/04/19. Subjective Chief Complaint/HPI Pt this morning states that she is feeling alright. She has no new concerns. Her breathing has improved. General: Denies: Fatigue Constitutional: Denies: Chills, Fever Pulmonary: Denies: Dyspnea, Cough Cardiovascular: Denies: Chest Pain, Palpitations Gastrointestinal: Denies: Nausea, Vomiting, Diarrhea Neurological: Denies: Weakness Psych: Reports: Mood Normal Objective Physical Examination General Exam: Positive: Alert, No Acute Distress ENT Exam: Positive: Mucous membr. moist/pink Chest Exam: Positive: Rales (fine bibasilar rales); Negative: Diminished Heart Exam: Positive: Rate Normal Abdomen Exam: Positive: Normal bowel sounds, Soft; Negative: Tenderness Extremity Exam: Negative: Edema Neuro Exam: Positive: Normal Speech Psych Exam: Positive: Mental status NL, Mood NL Assessment /Plan Problems (1) CKD (chronic kidney disease) stage 4, GFR 15-29 ml/min Status: Chronic Response to Treatment: Stable Discussed With: Nurse, Patient Problem Specific Plan: Consult Specialist, Monitor Clinically, Repeat Labs Problem Text: patient and HCP continue to refuse HD consideration 02/04 BUN/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 Moderate LVH. Grade 2 diastolic dysfunction. EF: 60-75% Last Edited By: Soheila Freed NP on Jul 22, 2015 09:54 Status: Acute Response to Treatment: Stable, Improving Discussed With: Nurse, Patient Problem Specific Plan: Monitor Clinically, Repeat Labs Problem Text: doubt accurate I/O, no change in AM wts tc fur gtt 02/02 15058 c + 600 over last 2D; fur 40 QD to BID 01/30 BNP 8330 (on admission c symptomatic CHF) 01/30 BCX2 NG (3) Renal artery stenosis Permanent Comment: NOT candidate to stent L renal artery of 1 functional kidney given refusal for possible HD afterwards (per IR and Nephro) Last Edited By: Ashish Bustillo MD on Feb 01, 2019 17:17 Status: Chronic Problem Text: NOT candidate to stent L renal artery of 1 functional kidney gi becki refusal for possible HD afterwards (per IR and Nephro) (4) Urinary retention Status: Acute Problem Text: new onset c 01/30/19 admission remains on HD doxa 4 01/30 -UA 02/01 TOV c stable PVRs (5) Anemia of renal disease Status: Chronic Response to Treatment: Stable Problem Specific Plan: Monitor Clinically Problem Text: patient defers EGD/colon 02/04 Hgb down to 7.8, +1 PRBC sp IV Fe/EPO and 4u PRBCs (6) HTN (hypertension) Permanent Comment: HD dox 4, amlo 10, hydral 10 QID, carve 37.5 BID, ISMN 60 Last Edited By: Ashish Bustillo MD on Feb 01, 2019 16:31 Status: Chronic Problem Text: fair control on HD dox 4, amlo 10, hydral 10 QID, carve 37.5 BID, ISMN 60 (7) Physical deconditioning Status: Chronic Problem Text: 02/04 NS for DC per PT-plan for home favor change to SNF status Plan/VTE VTE Prophylaxis Ordered?: Yes VS, I&O, 24H, Fishbone Vital Signs/I&O Vital Signs Date Time Temp Pulse Resp B/P (MAP) Pulse Ox O2 Delivery O2 Flow Rate FiO2 02/04/19 10:00 99.1 62 20 150/66 (94) 96 Nasal Cannula 2.0 I&O- Last 24 Hours up to 6 AM 02/04/19 06:00 Intake Total 660 ml Output Total 400 ml Balance 260 ml Laboratory Data 24H LABS Laboratory Tests 2 02/04/19 05:41: Nucleated Red Blood Cells % (auto) 0.0, Anion Gap 9, Glomerular Filtration Rate 11.8L, Calcium Level 7.8L CBC/BMP Laboratory Tests 02/04/19 05:41 Microbiology Microbiology 01/30/19 Blood Culture - Final, Complete NO GROWTH AFTER 5 DAYS 01/30/19 Blood Culture - Final, Complete NO GROWTH AFTER 5 DAYS 01/30/19 Respiratory Virus Panel (PCR) ([facility]) - Final, Complete YEN MORENO PA-C Feb 04, 2019 11:05 Ashish Bustillo M.D. Feb 04, 2019 16:55
--- NOTE | 2019-02-04 12:34 | IPN ---
DATE: 02/04/2019 SUBJECTIVE: The patient is seen this morning at bedside and reports that she is "about the same." She continues to not be interested in dialysis at the moment and has no other complaints at this time. OBJECTIVE: VITAL SIGNS: Temperature 99.1, pulse 62, respiratory rate 20, blood pressure 150/66, saturating 96% on 2 liters. She has put out 600 mL of urine over the last 24 hours. PHYSICAL EXAMINATION: GENERAL: The patient is awake, alert, oriented times three, laying in bed in no acute distress. HEENT: Extraocular muscles intact. Pupils are equal, round and reactive to light. Mucous membranes are moist. NECK: Supple. She continues to have a moderate amount of jugular venous distention (JVD). CARDIOVASCULAR: Regular rate and rhythm. Normal S1, S2. No edema of the bilateral lower extremities. RESPIRATORY: Diminished breath sounds at the bilateral bases with no crackles at the bases. ABDOMEN: Soft, nontender, nondistended. Positive bowel sounds. NEUROLOGIC: No focal neurological deficits. LABORATORY REVIEW: The patient's white blood cell count is 7.8, hemoglobin 7.8, hematocrit 23.7, platelets 388. Sodium of 132, potassium 4.0, chloride 99, CO2 of 24, BUN of 87, creatinine of 3.87, glucose of 95, calcium 7.8. MEDICATIONS: She is continued on: - oral Lasix 40 mg twice a day - Aranesp 100 mcg once weekly - potassium chloride 10 mEq twice a day ASSESSMENT AND PLAN: 1. Acute kidney injury superimposed on chronic kidney disease stage IV. 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 Her creatinine has remained at similar levels and she continues to refuse hemodialysis. We are not planning on making any medication changes as she does not seem to be responding very much to Lasix, today her BUN and creatinine went up after the dose of IV Lasix that we gave yesterday. 2. Renovascular hypertension. Blood pressures continues to be well controlled her current regimen of amlodipine 10 mg, hydralazine 100 mg four times a day, Coreg 37.5 mg twice a day, isosorbide 60 mg by mouth daily. 3. Acute decompensated diastolic congestive heart failure (CHF), likely secondary to left sided renal artery stenosis and renal failure. Once again, while she did put out 600 the last 24 hours, her kidneys did not respond well to the increased dose of the IV Lasix. We will continue her on her current oral dose of Lasix at this time. 4. Iron deficiency anemia. The patient is status post Venofer and was started on Aranesp once weekly. Her hemoglobin continues to trend downward, likely as a result of her kidney disease and possibly as a result of her history of recurrent GI bleed, which she is not interested in having fixed with colonoscopy. We will give her 1 unit of blood today. DISPOSITION: The patient continues to refuse dialysis. She is a DO NOT RESUSCITATE, DO NOT INTUBATE. She also continues to refuse any possibility of palliative care and hospice.
[2019-02-04] MEDS: DOXAZOSIN MESYLATE 4 MG TAB PO SCH (21:16)
[2019-02-05] VITALS (8 sets, daily range): BP systolic 128–168; BP diastolic 44–63; O2SAT 93–94
[2019-02-05 05:58] LABS: HEMATOCRIT 26.6 % (36.0-47.0); HEMOGLOBIN 8.9 g/dl (12.0-15.5); MEAN CORPUSCULAR HEMOGLOBIN 32.2 pg (27.0-33.0); MEAN CORPUSCULAR HGB CONC 33.5 g/dl (32.0-36.5); MEAN CORPUSCULAR VOLUME 96.4 fl (80.0-96.0); PLATELET COUNT, AUTOMATED 392 10^3/uL (150-450); RED BLOOD COUNT 2.76 10^6/uL (4.00-5.40); WHITE BLOOD COUNT 8.2 10^3/uL (4.0-10.0)
[2019-02-05 06:18] LABS: CALCIUM LEVEL 8.2 MG/DL (8.8-10.2); CREATININE FOR GFR 3.98 MG/DL (0.55-1.30); GLOMERULAR FILTRATION RATE 11.4 (>32); POTASSIUM SERUM 4.3 MEQ/L (3.5-5.1)
[2019-02-05] MEDS: ALLOPURINOL 100 MG TAB PO SCH ×2 (08:50→21:49)
[2019-02-05] MEDS: FUROSEMIDE 40 MG TAB PO SCH ×2 (08:50→17:25)
[2019-02-05] MEDS: HYDROXYUREA 500 MG CAP PO SCH (08:50)
[2019-02-05] MEDS: POTASSIUM CHLORIDE 10 MEQ SR TABLET PO SCH ×2 (08:50→21:49)
[2019-02-05] MEDS: **hydrALAZINE** 50 MG TAB PO SCH ×4 (08:51→21:50)
[2019-02-05] MEDS: CARVedilol 12.5 MG TAB PO SCH ×2 (08:51→21:50)
[2019-02-05] MEDS: OCUVITE 1 TAB PO SCH ×2 (08:51→21:49)
[2019-02-05] MEDS: ISOSORBIDE MON. (IMDUR) 60 MG XR TAB PO SCH (08:51)
[2019-02-05] MEDS: MULTIVITAMINS/MINERALS THERAP 1 TAB PO SCH (08:51)
[2019-02-05] MEDS: amLODIPine 10 MG TAB PO SCH (08:52)
--- NOTE | 2019-02-05 11:11 | IPNPDOC ---
Subjective Date Seen The patient was seen on 02/05/19. Subjective Chief Complaint/HPI Pt this morning without new concerns. She is feeling well, denies pain. General: Denies: Fatigue Constitutional: Denies: Chills, Fever ENT: Denies: Head Aches Pulmonary: Denies: Dyspnea, Cough Cardiovascular: Denies: Chest Pain, Palpitations Gastrointestinal: Denies: Nausea, Vomiting, Diarrhea Neurological: Reports: Weakness Psych: Reports: Mood Normal Objective Physical Examination General Exam: Positive: Alert, No Acute Distress ENT Exam: Positive: Mucous membr. moist/pink Chest Exam: Positive: Rales (fine bibasilar rales); Negative: Diminished Heart Exam: Positive: Rate Normal Abdomen Exam: Positive: Normal bowel sounds, Soft; Negative: Tenderness Extremity Exam: Negative: Edema Neuro Exam: Positive: Normal Speech Psych Exam: Positive: Mental status NL, Mood NL Assessment /Plan Problems (1) CKD (chronic kidney disease) stage 4, GFR 15-29 ml/min Status: Chronic Response to Treatment: Stable Discussed With: Nurse, Patient Problem Specific Plan: Consult Specialist, Monitor Clinically, Repeat Labs Problem Text: patient and HCP continue to refuse HD consideration 02/04 BUN/cr to 87/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 Moderate LVH. Grade 2 diastolic dysfunction. EF: 60-75% Last Edited By: Soheila Freed NP on Jul 22, 2015 09:54 Status: Acute Response to Treatment: Stable, Improving Discussed With: Nurse, Patient Problem Specific Plan: Monitor Clinically, Repeat Labs Problem Text: doubt accurate I/O, no change in AM wts tc fur gtt 02/02 47144 c + 600 over last 2D; fur 40 QD to BID 01/30 BNP 8330 (on admission c symptomatic CHF) 01/30 BCX2 NG (3) Renal artery stenosis Permanent Comment: NOT candidate to stent L renal artery of 1 functional kidney given refusal for possible HD afterwards (per IR and Nephro) Last Edited By: Ashish Bustillo MD on Feb 01, 2019 17:17 Status: Chronic Problem Text: NOT candidate to stent L renal artery of 1 functional kidney given refusal for possible HD afterwards (per IR and Nephro) (4) Urinary retention Status: Acute Problem Text: new onset c 01/30/19 admission remains on HD doxa 4 01/30 -UA 02/01 TOV c stable PVRs (5) Anemia of renal disease Status: Chronic Response to Treatment: Stable Problem Specific Plan: Monitor Clinically Problem Text: patient defers EGD/colon 02/04 Hgb down to 7.8, +1 PRBC sp IV Fe/EPO and 4u PRBCs (6) HTN (hypertension) Permanent Comment: HD dox 4, amlo 10, hydral 10 QID, carve 37.5 BID, ISMN 60 Last Edited By: Ashish Bustillo MD on Feb 01, 2019 16:31 Status: Chronic Problem Text: fair control on HD dox 4, amlo 10, hydral 10 QID, carve 37.5 BID, ISMN 60 (7) Physical deconditioning Status: Chronic Problem Text: 02/04 NS for DC per PT-plan for home favor change to SNF status Plan/VTE VTE Prophylaxis Ordered?: Yes VS, I&O, 24H, Fishbone Vital Signs/I&O Vital Signs Date Time Temp Pulse Resp B/P (MAP) Pulse Ox O2 Delivery O2 Flow Rate FiO2 02/05/19 08:52 69 146/55 02/05/19 06:00 98.0 20 95 Nasal Cannula 2.0 I&O- Last 24 Hours up to 6 AM 02/05/19 06:00 Intake Total 1455 ml Output Total 775 ml Balance 680 ml Laboratory Data 24H LABS Laboratory Tests 2 02/05/19 05:25: Nucleated Red Blood Cells % (auto) 0.2H, Anion Gap 10, Glomerular Filtration Rate 11.4L, Calcium Level 8.2L, NB-Mxs-U-Type Natriuretic Peptide 06570B CBC/BMP Laboratory Tests 02/05/19 05:25 Microbiology Microbiology 01/30/19 Blood Culture - Final, Complete NO GROWTH AFTER 5 DAYS 01/30/19 Blood Culture - Final, Complete NO GROWTH AFTER 5 DAYS 01/30/19 Respiratory Virus Panel (PCR) ([facility]) - Final, Complete YEN MORENO PA-C Feb 05, 2019 11:11
[2019-02-05] MEDS ORDERED: FUROSEMIDE 100 MG/10 ML VIAL (J1940) IV ONE (11:30)
--- NOTE | 2019-02-05 14:13 | IPN ---
DATE: 02/05/2019 SUBJECTIVE: The patient was seen and examined at the bedside this morning. She is laying in the bed. There is no improvement in the renal function. Creatinine has been fluctuating at around 3.8 to 3.9. Shortness of breath is controlled. She has persistently elevated BNP levels. She continues to be on diuretics. The patient denies any active complaints at this time. She got 1 unit of packed red blood cell transfusion. Hemoglobin level has nicely improved to 8.9 today. OBJECTIVE Vital signs: Temperature is 97.7 degrees Fahrenheit, blood pressure 137/54, pulse is 62, respiratory rate of 21, saturating 91% on room air. Intake and output: Urine output recorded is 825 mL yesterday, 150 mL so far today since overnight. Weight on the bed scale is 64.4. PHYSICAL EXAMINATION: General: The patient is awake, alert, oriented times two laying in bed in no apparent distress. HEAD/NECK: Extraocular muscles intact. Pupils equally round and reactive to light. Neck is supple. She has engorged external jugular vein and elevated jugular venous distention (JVD). Cardiovascular: S1, S2. Regular rate. Trace edema of the bilateral lower extremities. Respiratory: Chest is clear to auscultation bilaterally. Bilateral equal air entry. No rales or rhonchi. Abdomen: Soft, positive bowel sounds. Nontender. No organomegaly. Musculoskeletal: No clubbing or cyanosis. Pulses are 2+. 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 Power is 5/5 in all extremities. LABORATORY REVIEW: CBC showed WBC 8.2, hemoglobin 8.9, platelets of 392. BMP showed sodium 133, potassium 4.3, chloride 100, bicarbonate 23, BUN 93, creatinine is 3.9, calcium is 8.2 Pro-BNP is 10,940. CURRENT INPATIENT MEDICATIONS: The patient's medications were all reviewed by me. She continues to be on Lasix 40 mg by mouth twice a day. I have ordered another dose of Lasix 60 mg IV times one dose. No other change in the medications today as compared with yesterday. ASSESSMENT/PLAN: 1. Chronic kidney disease stage V. The patient has progressed to end-stage renal disease. She is refusing dialysis. Maximum medical optimization at this time. Blood pressures are controlled. Continue the current dose of diuretics. Electrolytes are within the acceptable range. Acid base status is optimized. 2. Renovascular hypertension. Continue current dose of amlodipine, hydralazine, Coreg and isosorbide. Blood pressures are optimal. 3. Acute on chronic decompensated diastolic congestive heart failure. The patient continues to be on Lasix 40 mg p.o. twice a day. Output is not being monitored accurately. She still has engorged neck veins and has elevated BNP. I have ordered another dose of Lasix 60 mg IV. 4. Renal artery stenosis. The patient has atrophic right kidney and stenosis of the left renal artery. She refuses angiogram. 5. Iron-deficiency anemia. The patient got 1 unit of packed red blood cell transfusion yesterday. She is also receiving Aranesp 100 mcg subcutaneous on Tuesdays. I am going to order daily Venofer. She also got a dose of 200 mg of IV Venofer 4 days ago. The patient has rectal bleeding and refuses any endoscopy. DISPOSITION: Patient has progressed to end-stage renal disease. She has solitary functioning left kidney with renal artery stenosis, decompensated congestive heart failure and is refusing dialysis. At this point, nephrology has nothing else to offer. Nephrology service is going to sign off at this moment. Please call nephrology service for any help in the management of this patient during this hospitalization.
[2019-02-05] MEDS: IRON SUCROSE 200 MG in NS 100 ML IV SCH (14:45)
[2019-02-05] MEDS: DOXAZOSIN MESYLATE 4 MG TAB PO SCH (21:49)
[2019-02-06] VITALS (7 sets, daily range): BP systolic 80–160; BP diastolic 49–66; O2SAT 97
[2019-02-06 06:12] LABS: HEMATOCRIT 27.2 % (36.0-47.0); HEMOGLOBIN 8.9 g/dl (12.0-15.5); MEAN CORPUSCULAR HEMOGLOBIN 31.8 pg (27.0-33.0); MEAN CORPUSCULAR HGB CONC 32.7 g/dl (32.0-36.5); MEAN CORPUSCULAR VOLUME 97.1 fl (80.0-96.0); PLATELET COUNT, AUTOMATED 403 10^3/uL (150-450); WHITE BLOOD COUNT 8.2 10^3/uL (4.0-10.0)
[2019-02-06 06:36] LABS: CALCIUM LEVEL 8.3 MG/DL (8.8-10.2); CREATININE FOR GFR 3.77 MG/DL (0.55-1.30); GLOMERULAR FILTRATION RATE 12.1 (>32); POTASSIUM SERUM 3.9 MEQ/L (3.5-5.1)
[2019-02-06] MEDS ORDERED: FERROUS SULFATE 325MG TAB PO SCH (09:00)
[2019-02-06] MEDS: OCUVITE 1 TAB PO SCH ×2 (09:13→22:06)
[2019-02-06] MEDS: POTASSIUM CHLORIDE 10 MEQ SR TABLET PO SCH ×2 (09:14→22:06)
[2019-02-06] MEDS: FUROSEMIDE 40 MG TAB PO SCH ×2 (09:14→17:31)
[2019-02-06] MEDS: CARVedilol 12.5 MG TAB PO SCH ×2 (09:14→22:07)
[2019-02-06] MEDS: amLODIPine 10 MG TAB PO SCH (09:14)
[2019-02-06] MEDS: MULTIVITAMINS/MINERALS THERAP 1 TAB PO SCH (09:14)
[2019-02-06] MEDS: ISOSORBIDE MON. (IMDUR) 60 MG XR TAB PO SCH (09:15)
[2019-02-06] MEDS: HYDROXYUREA 500 MG CAP PO SCH (09:15)
[2019-02-06] MEDS: **hydrALAZINE** 50 MG TAB PO SCH ×4 (09:15→22:07)
[2019-02-06] MEDS: ALLOPURINOL 100 MG TAB PO SCH ×2 (09:15→22:05)
[2019-02-06] MEDS: ONDANSETRON 4 MG TAB (S0181) PO PRN (09:17)
--- NOTE | 2019-02-06 11:33 | IPNPDOC ---
Subjective Date Seen The patient was seen on 02/06/19. Subjective Chief Complaint/HPI stable dyspnea s cough Constitutional: Denies: Chills Eyes: Denies: Pain Pulmonary: Denies: Dyspnea, Cough Cardiovascular: Denies: Chest Pain, Palpitations Gastrointestinal: Denies: Nausea, Vomiting Genitourinary: Denies: Dysuria Objective Physical Examination General Exam: Positive: Alert, No Acute Distress ENT Exam: Positive: Mucous membr. 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 Moderate LVH. Grade 2 diastolic dysfunction. EF: 60-75% Last Edited By: Soheila Freed NP on Jul 22, 2015 09:54 Status: Acute Response to Treatment: Stable, Improving Discussed With: Nurse, Patient Problem Specific Plan: Monitor Clinically, Repeat Labs Problem Text: 02/05 1030/850 02/05 79859 02/02 55960 c + 600 over last 2D; fur 40 QD to BID 01/30 BNP 8330 (on admission c symptomatic CHF) 01/30 BCX2 NG (3) Renal artery stenosis Permanent Comment: NOT candidate to stent L renal artery of 1 functional kidney given refusal for possible HD afterwards (per IR and Nephro) Last Edited By: Ashish Bustillo MD on Feb 01, 2019 17:17 Status: Chronic Problem Text: NOT candidate to stent L renal artery of 1 functional kidney given refusal for possible HD afterwards (per IR and Nephro) (4) Urinary retention Status: Acute Problem Text: Stable PVR s le new onset c 01/30/19 admission remains on HD doxa 4 01/30 -UA 02/01 TOV c stable PVRs (5) Anemia of renal disease Status: Chronic Response to Treatment: Stable Problem Specific Plan: Monitor Clinically Problem Text: patient defers EGD/colon 02/06 02/04 Hgb down to 7.8, +1 PRBC sp 1 gm IV Fe total /EPO and 4u PRBCs (6) HTN (hypertension) Permanent Comment: HD dox 4, amlo 10, hydral 10 QID, carve 37.5 BID, ISMN 60 Last Edited By: Ashish Bustillo MD on Feb 01, 2019 16:31 Status: Chronic Problem Text: fair control on HD dox 4, amlo 10, hydral 10 QID, carve 37.5 BID, ISMN 60 (7) Physical deconditioning Status: Chronic Problem Text: 02/05 safe to dc home per PT Plan/VTE VTE Prophylaxis Ordered?: Yes VS, I&O, 24H, Fishbone Vital Signs/I&O Vital Signs Date Time Temp Pulse Resp B/P (MAP) Pulse Ox O2 Delivery O2 Flow Rate FiO2 02/06/19 10:00 98.0 70 19 122/54 (76) 98 Room Air 02/05/19 22:00 2.0 I&O- Last 24 Hours up to 6 AM 02/06/19 06:00 Intake Total 1360 ml Output Total 700 ml Balance 660 ml Laboratory Data 24H LABS Laboratory Tests 2 02/06/19 05:36: Nucleated Red Blood Cells % (auto) 0.4H, Anion Gap 9, Glomerular Filtration Rate 12.1L, Calcium Level 8.3L CBC/BMP Laboratory Tests 02/06/19 05:36 Microbiology Microbiology 01/30/19 Blood Culture - Final, Complete NO GROWTH AFTER 5 DAYS 01/30/19 Blood Culture - Final, Complete NO GROWTH AFTER 5 DAYS 01/30/19 Respiratory Virus Panel (PCR) ([facility]) - Final, Complete Ashish Bustillo M.D. Feb 06, 2019 11:33
[2019-02-06] MEDS: IRON SUCROSE 200 MG in NS 100 ML IV SCH ×2 (14:00→15:06)
[2019-02-06] MEDS: DOXAZOSIN MESYLATE 4 MG TAB PO SCH (22:06)
[2019-02-07] VITALS (8 sets, daily range): BP systolic 142–157; BP diastolic 55–66; O2SAT 92–97
[2019-02-07 05:56] LABS: BASO % 0.5 % (0.0-1.0); EOS # 0.2 10^3/uL (0.0-0.5); EOS % 2.3 % (0.0-3.0); HEMATOCRIT 26.5 % (36.0-47.0); HEMOGLOBIN 8.8 g/dl (12.0-15.5); LYMPH # 0.5 10^3/uL (1.5-5.0); LYMPH % 5.9 % (24.0-44.0); MEAN CORPUSCULAR HEMOGLOBIN 32.4 pg (27.0-33.0); MEAN CORPUSCULAR HGB CONC 33.2 g/dl (32.0-36.5); MEAN CORPUSCULAR VOLUME 97.4 fl (80.0-96.0); MONO # 1.2 10^3/uL (0.0-0.8); MONO % 14.4 % (0.0-5.0); NEUTROPHILS # 6.1 10^3/uL (1.5-8.5); PLATELET COUNT, AUTOMATED 397 10^3/uL (150-450); RED BLOOD COUNT 2.72 10^6/uL (4.00-5.40)
[2019-02-07 06:24] LABS: ALBUMIN 2.7 GM/DL (3.2-5.2); BILIRUBIN,TOTAL 0.5 MG/DL (0.2-1.0); CALCIUM LEVEL 7.8 MG/DL (8.8-10.2); CREATININE FOR GFR 3.83 MG/DL (0.55-1.30); GLOMERULAR FILTRATION RATE 11.9 (>32); POTASSIUM SERUM 4.3 MEQ/L (3.5-5.1); TOTAL PROTEIN 6.9 GM/DL (6.4-8.2)
[2019-02-07] MEDS: HYDROXYUREA 500 MG CAP PO SCH (08:14)
[2019-02-07] MEDS: FERROUS SULFATE 325MG TAB PO SCH (08:14)
[2019-02-07] MEDS: MULTIVITAMINS/MINERALS THERAP 1 TAB PO SCH (08:14)
[2019-02-07] MEDS: amLODIPine 10 MG TAB PO SCH (08:14)
[2019-02-07] MEDS: FUROSEMIDE 40 MG TAB PO SCH ×2 (08:14→17:19)
[2019-02-07] MEDS: **hydrALAZINE** 50 MG TAB PO SCH ×4 (08:15→20:18)
[2019-02-07] MEDS: POTASSIUM CHLORIDE 10 MEQ SR TABLET PO SCH ×2 (08:15→20:18)
[2019-02-07] MEDS: OCUVITE 1 TAB PO SCH ×2 (08:15→20:18)
[2019-02-07] MEDS: ALLOPURINOL 100 MG TAB PO SCH ×2 (08:15→20:18)
[2019-02-07] MEDS: CARVedilol 12.5 MG TAB PO SCH ×2 (08:15→20:19)
[2019-02-07] MEDS: ISOSORBIDE MON. (IMDUR) 60 MG XR TAB PO SCH (08:15)
--- NOTE | 2019-02-07 16:48 | IPNPDOC ---
Subjective Date Seen The patient was seen on 02/07/19. Subjective Chief Complaint/HPI continued generalized weakness Constitutional: Denies: Chills Eyes: Denies: Pain ENT: Denies: Head Aches Pulmonary: Denies: Dyspnea, Cough Cardiovascular: Denies: Chest Pain, Palpitations Gastrointestinal: Denies: Nausea, Vomiting Objective Physical Examination General Exam: Positive: Alert, No Acute Distress ENT Exam: Positive: Mucous membr. moist/pink Chest Exam: Positive: Rales (fine bibasilar rales), Diminished (bilateral bases) Heart Exam: Positive: Rate Normal Abdomen Exam: Positive: Normal bowel sounds, Soft; Negative: Tenderness Extremity Exam: Negative: Edema Neuro Exam: Positive: Normal Speech Psych Exam: Positive: Mental status NL, Mood NL Assessment /Plan Problems (1) Discharge planning issues Status: Chronic Problem Text: I do not feel she is safe to dc home from functional nor medical standpoint; [facility] which I feel would be the most logical choice-will consult PFS to discuss options c patient (2) CKD (chronic kidney disease), stage V Status: Chronic Problem Text: patient and HCP continue to refuse HD consideration 02/06 BUN/cr stable at 88/3.9, K 3.9 02/05 Nephro signed off given CKD V and refusing dialysis-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 Moderate LVH. Grade 2 diastolic dysfunction. EF: 60-75% Last Edited By: Soheila Freed NP on Jul 22, 2015 09:54 Status: Acute Response to Treatment: Stable, Improving Discussed With: Nurse, Patient Problem Specific Plan: Monitor Clinically, Repeat Labs Problem Text: 02/08 mild decompensation (up ~2 kg) c O2 requirement; therefore, increased fur 80 BID to 120 BID (no IV access) 02/05 04873 02/02 19395 c + 600 over last 2D; fur 40 QD to BID 01/30 BNP 8330 (on admission c symptomatic CHF) 01/30 BCX2 NG (4) Renal artery stenosis Permanent Comment: NOT candidate to stent L renal artery of 1 functional kidney given refusal for possible HD afterwards (per IR and Nephro) Last Edited By: Ashish Bustillo MD on Feb 01, 2019 17:17 Status: Chronic Problem Text: NOT candidate to stent L renal artery of 1 functional kidney given refusal for possible HD afterwards (per IR and Nephro) (5) Urinary retention Status: Acute Problem Text: Stable PVR s le new onset c 01/30/19 admission remains on HD doxa 4 01/30 -UA 02/01 TOV c stable PVRs (6) Anemia of renal disease Status: Chronic Response to Treatment: Stable Problem Specific Plan: Monitor Clinically Problem Text: patient defers EGD/colon 02/07 8.8 02/04 Hgb down to 7.8, +1 PRBC sp 1 gm IV Fe total /EPO and 4u PRBCs (7) HTN (hypertension) Permanent Comment: HD dox 4, amlo 10, hydral 10 QID, carve 37.5 BID, ISMN 60 Last Edited By: Ashish Bustillo MD on Feb 01, 2019 16:31 Status: Chronic Problem Text: fair control on HD dox 4, amlo 10, hydral 10 QID, carve 37.5 BID, ISMN 60 (8) Physical deconditioning Status: Chronic Problem Text: 02/05 safe to dc home per PT Plan/VTE VTE Prophylaxis Ordered?: Yes VS, I&O, 24H, Fishbone Vital Signs/I&O Vital Signs Date Time Temp Pulse Resp B/P (MAP) Pulse Ox O2 Delivery O2 Flow Rate FiO2 02/07/19 12:47 151/57 02/07/19 10:00 98.0 66 18 95 Room Air 02/07/19 09:00 2.0 I&O- Last 24 Hours up to 6 AM 02/07/19 06:00 Intake Total 740 ml Output Total 200 ml Balance 540 ml Laboratory Data 24H LABS Laboratory Tests 2 02/07/19 05:44: Immature Granulocyte % (Auto) 0.9, Neutrophils (%) (Auto) 76.0H, Lymphocytes (%) (Auto) 5.9L, Monocytes (%) (Auto) 14.4H, Eosinophils (%) (Auto) 2.3, Basophils (%) (Auto) 0.5, Neutrophils # (Auto) 6.1, Lymphocytes # (Auto) 0.5L, Monocytes # (Auto) 1.2H, Eosinophils # (Auto) 0.2, Basophils # (Auto) 0.0, Nucleated Red Blood Cells % (auto) 0.5H, Anion Gap 11, Glomerular Filtration Rate 11.9L, Calcium Level 7.8L, Total Bilirubin 0.5, Aspartate Amino Transf (AST/SGOT) 13, Alanine Aminotransferase (ALT/SGPT) 12, Alkaline Phosphatase 84, Total Protein 6.9, Albumin 2.7L, Albumin/Globulin Ratio 0.64L CBC/BMP Laboratory Tests 02/07/19 05:44 Microbiology Microbiology 01/30/19 Blood Culture - Final, Complete NO GROWTH AFTER 5 DAYS 01/30/19 Blood Culture - Final, Complete NO GROWTH AFTER 5 DAYS 01/30/19 Respiratory Virus Panel (PCR) ([facility]IANA) - Final, Complete Ashish Bustillo M.D. Feb 07, 2019 16:48
[2019-02-07] MEDS ORDERED: FUROSEMIDE 40 MG/4 ML VIAL (J1940) IV ONE (17:00)
[2019-02-07] MEDS ORDERED: FUROSEMIDE 40 MG TAB PO ONE (17:45)
[2019-02-07] MEDS ORDERED: PILL CUTTER 1 EACH XX PRN (18:00)
[2019-02-07] MEDS: DOXAZOSIN MESYLATE 4 MG TAB PO SCH (20:19)
[2019-02-08] VITALS (7 sets, daily range): BP systolic 136–154; BP diastolic 50–73; O2SAT 94–96
[2019-02-08 06:12] LABS: BASO % 0.5 % (0.0-1.0); EOS # 0.1 10^3/uL (0.0-0.5); EOS % 1.4 % (0.0-3.0); HEMATOCRIT 25.8 % (36.0-47.0); HEMOGLOBIN 8.6 g/dl (12.0-15.5); LYMPH # 0.4 10^3/uL (1.5-5.0); LYMPH % 4.8 % (24.0-44.0); MEAN CORPUSCULAR HEMOGLOBIN 32.2 pg (27.0-33.0); MEAN CORPUSCULAR HGB CONC 33.3 g/dl (32.0-36.5); MEAN CORPUSCULAR VOLUME 96.6 fl (80.0-96.0); MONO # 1.6 10^3/uL (0.0-0.8); MONO % 18.6 % (0.0-5.0); NEUTROPHILS # 6.5 10^3/uL (1.5-8.5); NEUTROPHILS % 73.8 % (36.0-66.0); PLATELET COUNT, AUTOMATED 390 10^3/uL (150-450); RED BLOOD COUNT 2.67 10^6/uL (4.00-5.40); WHITE BLOOD COUNT 8.8 10^3/uL (4.0-10.0)
[2019-02-08 06:41] LABS: ALBUMIN 2.8 GM/DL (3.2-5.2); CALCIUM LEVEL 8.2 MG/DL (8.8-10.2); CREATININE FOR GFR 4.04 MG/DL (0.55-1.30); GLOMERULAR FILTRATION RATE 11.2 (>32); PHOSPHORUS LEVEL 4.5 MG/DL (2.5-4.9); POTASSIUM SERUM 4.5 MEQ/L (3.5-5.1)
[2019-02-08] MEDS: OCUVITE 1 TAB PO SCH ×2 (09:29→20:13)
[2019-02-08] MEDS: MULTIVITAMINS/MINERALS THERAP 1 TAB PO SCH (09:29)
[2019-02-08] MEDS: HYDROXYUREA 500 MG CAP PO SCH (09:29)
[2019-02-08] MEDS: FUROSEMIDE 80 MG TAB PO SCH ×2 (09:30→17:06)
[2019-02-08] MEDS: **hydrALAZINE** 50 MG TAB PO SCH ×4 (09:30→20:14)
[2019-02-08] MEDS: ISOSORBIDE MON. (IMDUR) 60 MG XR TAB PO SCH (09:30)
[2019-02-08] MEDS: POTASSIUM CHLORIDE 10 MEQ SR TABLET PO SCH ×2 (09:31→20:13)
[2019-02-08] MEDS: CARVedilol 12.5 MG TAB PO SCH ×2 (09:31→20:13)
[2019-02-08] MEDS: ALLOPURINOL 100 MG TAB PO SCH ×2 (09:31→20:13)
[2019-02-08] MEDS: amLODIPine 10 MG TAB PO SCH (09:32)
--- NOTE | 2019-02-08 09:42 | IPNPDOC ---
Subjective Date Seen The patient was seen on 02/08/19. Subjective Chief Complaint/HPI CHF Events since last encounter family at bedside. Patient expressed interest in Hospice vs LTC. PFS consult placed and pending. Today, states fatigued, mild nausea. Constitutional: Reports: Fatigue, Lethargy; Denies: Chills, Fever, Night Sweats Skin: Denies: Rash, Lesions, Jaundice, Bruising, Itching, Dry, Breakdown, Nail Changes, Other Cardiovascular: Denies: Chest Pain, Palpitations, Orthopnea, Paroxysmal Noc. Dyspnea, Lt Headedness Gastrointestinal: Reports: Nausea; Denies: Vomiting, Abdominal Pain, Diarrhea Genitourinary: Denies: Dysuria, Frequency, Incontinence, Retention Objective Physical Examination General Exam: Positive: Alert, No Acute Distress ENT Exam: Positive: Mucous membr. moist/pink Chest Exam: Positive: Rales (fine bibasilar rales), Diminished (bilateral bases) Heart Exam: Positive: Rate Normal Abdomen Exam: Positive: Normal bowel sounds, Soft; Negative: Tenderness Extremity Exam: Positive: Edema (trace BLE) Neuro Exam: Positive: Normal Speech Psych Exam: Positive: Mental status NL, Mood NL Assessment /Plan Problems (1) Discharge planning issues Status: Chronic Problem Text: 02/08/19: will review with PFS. 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 Moderate LVH. Grade 2 diastolic dysfunction. EF: 60-75% Last Edited By: Soheila Freed NP on Jul 22, 2015 09:54 Status: Acute Response to Treatment: Stable, Improving Discussed With: Nurse, Patient Problem Specific Plan: Monitor Clinically, Repeat Labs Problem Text: 02/08 mild decompensation (up ~2 kg) c O2 requirement; therefore, increased fur 80 BID to 120 BID (no IV access). Cr bumped to 4.0. trace BLE edema. 02/05 21696 02/02 85962 c + 600 over last 2D; fur 40 QD to BID 01/30 BNP 8330 (on admission c symptomatic CHF) 01/30 BCX2 NG (4) Renal artery stenosis Permanent Comment: NOT candidate to stent L renal artery of 1 functional kidney given refusal for possible HD afterwards (per IR and Nephro) Last Edited By: Ashish Bustillo MD on Feb 01, 2019 17:17 Status: Chronic Problem Text: NOT candidate to stent L renal artery of 1 functional kidney given refusal for possible HD afterwards (per IR and Nephro) (5) Urinary retention Status: Acute Problem Text: Stable PVR s le new onset c 01/30/19 admission remains on HD doxa 4 01/30 -UA 02/01 TOV c stable PVRs (6) Anemia of renal disease Status: Chronic Response to Treatment: Stable Problem Specific Plan: Monitor Clinically Problem Text: patient defers EGD/colon 02/07 8.8 02/04 Hgb down to 7.8, +1 PRBC sp 1 gm IV Fe total /EPO and 4u PRBCs (7) HTN (hypertension) Permanent Comment: HD dox 4, amlo 10, hydral 10 QID, carve 37.5 BID, ISMN 60 Last Edited By: Ashish Bustillo MD on Feb 01, 2019 16:31 Status: Chronic Problem Text: fair control on HD dox 4, amlo 10, hydral 10 QID, carve 37.5 BID, ISMN 60 (8) Physical deconditioning Status: Chronic Problem Text: 02/05 safe to dc home per PT Plan/VTE VTE Prophylaxis Ordered?: Yes VS, I&O, 24H, Fishbone Vital Signs/I&O Vital Signs Date Time Temp Pulse Resp B/P (MAP) Pulse Ox O2 Delivery O2 Flow Rate FiO2 02/08/19 09:32 75 154/77 02/08/19 06:00 99.8 20 94 Nasal Cannula 2.0 I&O- Last 24 Hours up to 6 AM 02/08/19 05:59 Intake Total 950 ml Output Total 625 ml Balance 325 ml Laboratory Data 24H LABS Laboratory Tests 2 02/08/19 05:54: Immature Granulocyte % (Auto) 0.9, Neutrophils (%) (Auto) 73.8H, Lymphocytes (%) (Auto) 4.8L, Monocytes (%) (Auto) 18.6H, Eosinophils (%) (Auto) 1.4, Basophils (%) (Auto) 0.5, Neutrophils # (Auto) 6.5, Lymphocytes # (Auto) 0.4L, Monocytes # (Auto) 1.6H, Eosinophils # (Auto) 0.1, Basophils # (Auto) 0.0, Nucleated Red Blood Cells % (auto) 0.5H, Anion Gap 11, Glomerular Filtration Rate 11.2L, Calcium Level 8.2L, Phosphorus Level 4.5, TN-Plf-G-Type Natriuretic Peptide 85332M, Albumin 2.8L CBC/BMP Laboratory Tests 02/08/19 05:54 Microbiology Microbiology 01/30/19 Blood Culture - Final, Complete NO GROWTH AFTER 5 DAYS 01/30/19 Blood Culture - Final, Complete NO GROWTH AFTER 5 DAYS 01/30/19 Respiratory Virus Panel (PCR) ([facility]) - Final, Complete Soheila Freed Feb 08, 2019 09:42 Maikel Larkin MD Feb 08, 2019 11:58
[2019-02-08] MEDS: DOXAZOSIN MESYLATE 4 MG TAB PO SCH (20:14)
[2019-02-09 02:00] VITALS: BP 147/52
[2019-02-09 06:00] VITALS: BP 145/52
[2019-02-09] MEDS: DARBEPOETIN 100 MCG/0.5 ML *NON-DIALYSIS* SYRINGE (J0881) SC SCH (08:24)
[2019-02-09] MEDS: HYDROXYUREA 500 MG CAP PO SCH (08:24)
[2019-02-09] MEDS: OCUVITE 1 TAB PO SCH ×2 (08:24→21:18)
[2019-02-09] MEDS: amLODIPine 10 MG TAB PO SCH (08:25)
[2019-02-09] MEDS: **hydrALAZINE** 50 MG TAB PO SCH ×4 (08:25→21:17)
[2019-02-09] MEDS: ALLOPURINOL 100 MG TAB PO SCH ×2 (08:25→21:18)
[2019-02-09] MEDS: FUROSEMIDE 80 MG TAB PO SCH ×2 (08:26→16:14)
[2019-02-09] MEDS: FERROUS SULFATE 325MG TAB PO SCH (08:26)
[2019-02-09] MEDS: CARVedilol 12.5 MG TAB PO SCH ×2 (08:26→21:18)
[2019-02-09] MEDS: POTASSIUM CHLORIDE 10 MEQ SR TABLET PO SCH ×2 (08:26→21:18)
[2019-02-09] MEDS: ISOSORBIDE MON. (IMDUR) 60 MG XR TAB PO SCH (08:27)
[2019-02-09] MEDS: MULTIVITAMINS/MINERALS THERAP 1 TAB PO SCH (08:27)
[2019-02-09 10:00] VITALS: BP 147/52
[2019-02-09] MEDS: DOCUSATE SODIUM 100 MG CAP PO PRN (12:11)
--- NOTE | 2019-02-09 12:46 | IPNPDOC ---
Subjective Date Seen The patient was seen on 02/09/19. Subjective Chief Complaint/HPI c/o nasal congestion with clear nasal discharge and stable BALL Constitutional: Denies: Chills, Fever Pulmonary: Reports: Dyspnea, Cough Cardiovascular: Denies: Chest Pain, Palpitations Gastrointestinal: Reports: Constipation; Denies: Nausea, Vomiting, Abdominal Pain, Diarrhea Objective Physical Examination General Exam: Positive: Alert, No Acute Distress ENT Exam: Positive: Mucous membr. 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 PFS involved with plan to decide between [facility]ospice house vs NH 02/08/19: will review with PFS. 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 Moderate LVH. Grade 2 diastolic dysfunction. EF: 60-75% Last Edited By: Soheila Freed NP on Jul 22, 2015 09:54 Status: Acute Response to Treatment: Stable, Improving Discussed With: Nurse, Patient Problem Specific Plan: Monitor Clinically, Repeat Labs Problem Text: 02/09 - Remains stable at this time 02/08 mild decompensation (up ~2 kg) c O2 requirement; therefore, increased fur 80 BID to 120 BID (no IV access). Cr bumped to 4.0. trace BLE edema. 02/05 73503 02/02 08346 c + 600 over last 2D; fur 40 QD to BID 01/30 BNP 8330 (on admission c symptomatic CHF) 01/30 BCX2 NG (4) Renal artery stenosis Permanent Comment: NOT candidate to stent L renal artery of 1 functional kidney given refusal for possible HD afterwards (per IR and Nephro) Last Edited By: Ashish Bustillo MD on Feb 01, 2019 17:17 Status: Chronic Problem Text: NOT candidate to stent L renal artery of 1 functional kidney given refusal for possible HD afterwards (per IR and Nephro) (5) Urinary retention Status: Acute Problem Text: Stable PVR s le new onset c 01/30/19 admission remains on HD doxa 4 01/30 -UA 02/01 TOV c stable PVRs (6) Anemia of renal disease Status: Chronic Response to Treatment: Stable Problem Specific Plan: Monitor Clinically Problem Text: patient defers EGD/colon 02/07 8.8 02/04 Hgb down to 7.8, +1 PRBC sp 1 gm IV Fe total /EPO and 4u PRBCs (7) HTN (hypertension) Permanent Comment: HD dox 4, amlo 10, hydral 10 QID, carve 37.5 BID, ISMN 60 Last Edited By: Ashish Bustillo MD on Feb 01, 2019 16:31 Status: Chronic Problem Text: fair control on HD dox 4, amlo 10, hydral 10 QID, carve 37.5 BID, ISMN 60 (8) Physical deconditioning Status: Chronic Problem Text: 02/05 safe to dc home per PT Plan/VTE VTE Prophylaxis Ordered?: Yes Disposition Per PFS VS, I&O, 24H, [facility] Vital Signs/I&O Vital Signs Date Time Temp Pulse Resp B/P (MAP) Pulse Ox O2 Delivery O2 Flow Rate FiO2 02/09/19 10:00 97.4 67 18 147/52 (83) 91 Room Air 02/09/19 08:00 2.0 I&O- Last 24 Hours up to 6 AM 02/09/19 05:59 Intake Total 1050 ml Output Total 1125 ml Balance -75 ml Laboratory Data Microbiology Microbiology 01/30/19 Blood Culture - Final, Complete NO GROWTH AFTER 5 DAYS 01/30/19 Blood Culture - Final, Complete NO GROWTH AFTER 5 DAYS 01/30/19 Respiratory Virus Panel (PCR) ([facility]) - Final, Complete KELSEY SNELL PA-C Feb 09, 2019 12:46 Maikel Larkin MD Feb 09, 2019 13:04
[2019-02-09 14:00] VITALS: BP 141/54
[2019-02-09] MEDS: DOXAZOSIN MESYLATE 4 MG TAB PO SCH (21:18)
[2019-02-09 22:56] VITALS: O2SAT 95
[2019-02-10 06:00] VITALS: BP 150/72
[2019-02-10] MEDS ORDERED: FERR325T18 PO (08:33)
[2019-02-10] MEDS ORDERED: ISOS60TA2 PO (08:33)
[2019-02-10] MEDS ORDERED: SENN18TA PO (08:33)
[2019-02-10] MEDS ORDERED: DOCU100C16 PO (08:33)
[2019-02-10] MEDS ORDERED: FURO80TA2 PO (08:33)
[2019-02-10] MEDS ORDERED: MORP20SO PO (08:53)
[2019-02-10] MEDS ORDERED: HYOS1TAB PO (08:53)
[2019-02-10] MEDS ORDERED: LORA0.5T11 PO (08:53)
[2019-02-10] MEDS: **hydrALAZINE** 50 MG TAB PO SCH (10:01)
[2019-02-10] MEDS: HYDROXYUREA 500 MG CAP PO SCH (10:01)
[2019-02-10] MEDS: POTASSIUM CHLORIDE 10 MEQ SR TABLET PO SCH (10:02)
[2019-02-10] MEDS: OCUVITE 1 TAB PO SCH (10:02)
[2019-02-10] MEDS: FUROSEMIDE 80 MG TAB PO SCH (10:05)
[2019-02-10 10:06] VITALS: BP 150/72
[2019-02-10] MEDS: amLODIPine 10 MG TAB PO SCH (10:06)
[2019-02-10] MEDS: ISOSORBIDE MON. (IMDUR) 60 MG XR TAB PO SCH (10:06)
[2019-02-10] MEDS: MULTIVITAMINS/MINERALS THERAP 1 TAB PO SCH (10:06)
[2019-02-10] MEDS: CARVedilol 12.5 MG TAB PO SCH (10:06)
[2019-02-10] MEDS: ALLOPURINOL 100 MG TAB PO SCH (10:07)
--- NOTE | 2019-02-10 11:26 | DSES ---
DATE OF ADMISSION: 01/30/2019 DATE OF DISCHARGE: 02/10/2019 BRIEF HISTORY AND PHYSICAL: The patient is an 84-year-old patient, who presented with shortness of breath with significant dyspnea on exertion, unable to walk more than 3-4 feet. She could not get up from the bathroom yesterday, had to stay there for 15 minutes until she got enough strength and could breathe enough to call for help. Past medical history is significant for grade 2 diastolic dysfunction, chronic kidney disease stage IV, renal artery stenosis not a surgical candidate, he refused stent placement during previous admission, un controlled hypertension, history of recurrent gastrointestinal (GI) bleed, aortic valve replacement due to severe aortic stenosis with transcatheter aortic valve replacement (TAVR), gout, thrombocytosis, diastolic congestive heart failure, history of coronary artery disease, history of myocardial infarction (GA) and angioplasty with stents. Pertinent labs on admission - white count 18, hemoglobin 9.4, platelets 388,000, sodium 136, potassium 4.7, BUN 58, creatinine 2.8. Chest x-ray showed chronic appearing changes with no acute cardiopulmonary process. HOSPITAL COURSE: The patient was admitted for acute kidney injury superimposed on chronic kidney disease, stage IV with acute decompensated diastolic congestive heart failure secondary to left renal artery stenosis with worsening renal function and noncompliance with medications. 1. Acute kidney injury suppose superimposed on chronic kidney disease, stage IV. Renal function has been gradually declining. She has declined having renal artery stenting and she has declined any preparation or consideration of dialysis. Goal during the hospitalization was to try to optimize her volume status as much as possible and her breathing. Diuretics were adjusted by the nephrologists and her blood pressure medications were adjusted as well. She had some minimal diuresis with diuretic adjustments throughout the hospitalization, but progressively worsening decline in her renal function throughout the hospitalization as well. She has progressed to end-stage renal disease with a solitary functioning kidney with left renal artery stenosis refusing dialysis and refusing management of the renal artery stenosis or angiogram. At this point, she has decided to pursue comfort care with management at the [facility]. She does not want stop her medications as of yet, and so at this point, she will stay on her current dose of oral Lasix which has been increased and she will stay on her current blood pressure medications which have been adjusted in an effort to attain reasonable blood pressure control and keep her comfortable. She will be transferred to [facility] on all of her oral medications with the adjustments that have been made here in the hospital and those prescriptions have been sent to the pharmacy, and she will also be given medications for comfort as needed if and when she develops worsening of her congestive heart failure, respiratory distress, and her major concern is to be comfortable and not have the anxiety of dyspnea and shortness of breath associated with decompensation of her heart failure and feel confident that hospice can keep her comfortable during that phase. 2. Iron deficiency anemia. She has received 1 unit of packed red blood cells. She has been getting Aranesp on Tuesdays. She got a dose of Venofer. She has had some rectal bleeding but has refused endoscopy. At this point, she will just have some iron supplementation but no further management otherwise. DISPOSITION: She currently is stable. Her oxygen saturations are 92%. She will be sent with oxygen for comfort on 2 liters nasal cannula. Her blood pressure is controlled on her current regimen with a blood pressure 150/72. Her renal function has declined and her creatinine was 4.04 on the and no further blood work will be obtained. She will be transferred to the [facility]. She will remain on the 2 gram sodium diet with some fluid restriction in an effort to try to keep her comfortable and prevent rapid decline in her heart failure issues. Medications will include: - Colace 100 mg twice a day as needed for constipation - iron sulfate 325 mg every other day - furosemide 120 mg twice a day - isosorbide mononitrate 60 mg daily - Senna 1 tablet daily as needed for constipation - allopurinol 1 mg twice a day - amlodipine 10 mg daily - carvedilol 37.5 mg twice a day - doxazosin 4 mg at bedtime - hydralazine 100 mg four times a day - hydroxyurea 500 mg daily - multivitamin daily - potassium 10 mEq twice a day In addition, medications for comfort have been prescribed including: - lorazepam 0.5 mg 1 tablet every 4 hours as needed for agitation or anxiety - morphine sulfate concentrate 20 mg/mL 0.25 mL to 1 mL every 2 hours as needed for pain or dyspnea - hyoscyamine sulfate 0.125 mg every 4 hours as needed for terminal secretions DISCHARGE DIAGNOSES: 1. Chronic kidney disease, stage V. 2. Acute on chronic decompensated diastolic congestive heart failure. 3. Renovascular hypertension. 4. Renal artery stenosis. 5. Iron deficiency anemia. 6. Urinary retention.
== END 2019-02-10 11:10 | disposition hospice, inpatient (51) | DRG 291 ==
LOC: M ED 00:34 → M ED INP 02:26 → M PCU 03:56 → M MSPAV 02-03 18:17
PROVIDERS: ADMIT General Practice; ATTEND Family Medicine
PROC: 30233N1 Transfusion of Nonautologous Red Blood Cells into Peripheral Vein, Percutaneous Approach (ICD-10-PCS; principal; 2019-01-31)
DX: I13.2 Hypertensive heart and chronic kidney disease with heart failure and with stage 5 chronic kidney disease, or end stage renal disease (principal); I50.33 Acute on chronic diastolic (congestive) heart failure; N18.5 Chronic kidney disease, stage 5; I16.1 Hypertensive emergency; N17.9 Acute kidney failure, unspecified; M10.30 Gout due to renal impairment, unspecified site; D47.3 Essential (hemorrhagic) thrombocythemia; R33.9 Retention of urine, unspecified; I25.10 Atherosclerotic heart disease of native coronary artery without angina pectoris; Z66 Do not resuscitate; I25.2 Old myocardial infarction; D63.1 Anemia in chronic kidney disease; I70.1 Atherosclerosis of renal artery; Z88.1 Allergy status to other antibiotic agents; Z95.5 Presence of coronary angioplasty implant and graft; Z88.8 Allergy status to other drugs, medicaments and biological substances; Z79.899 Other long term (current) drug therapy